=== PATIENT | male | born 1950 | race Caucasian/White ===

== ENCOUNTER 2018-06-06 08:08 | Emergency (ER) | payer OTHER, MEDICARE ==
[2018-06-06 09:51] VITALS: BP 136/80
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
== END 2018-06-06 10:00 | disposition home or self-care (01) ==
LOC: CC.ED 08:08
DX: S80.212A Abrasion, left knee, initial encounter (principal); S80.211A Abrasion, right knee, initial encounter; S00.01XA Abrasion of scalp, initial encounter; M54.2 Cervicalgia; I10 Essential (primary) hypertension; Z79.82 Long term (current) use of aspirin; Z79.899 Other long term (current) drug therapy; V43.53XA Car driver injured in collision with pick-up truck in traffic accident, initial encounter
CPT/HCPCS: 70450; 71046; 72040; 72170; 99284

== ENCOUNTER 2019-03-14 15:52 | Emergency (ER) | payer MEDICARE, OTHER ==
[2019-03-14] MEDS ORDERED: Lidocaine 1% with EPINEPHrine 1:100,000 20 ML MDV ONE (15:58)
[2019-03-14 16:07] VITALS: BP 120/69; PULSE 63
[2019-03-14] MEDS ORDERED: Diphtheria,Pertussis(Acell),Tetanus Vaccine 0.5 ML Syringe IM ONE (16:14)
[2019-03-14] MEDS ORDERED: Lidocaine 1% with EPINEPHrine 1:100,000 20 ML MDV INJECT ONE (16:14)
[2019-03-14] MEDS ORDERED: Bacitracin/Neomycin/Polymyxin B Oint 28.4 GM Tube TOP ONE (16:14)
[2019-03-14] MEDS ORDERED: Bacitracin/Neomycin/Polymyxin B Oint 0.9 GM U/D Packet TOP ONE (16:27)
--- NOTE | 2019-03-14 16:45 | EDM.PDOC ---
ED HPI GENERAL MEDICAL PROBLEM - General Chief Complaint: Laceration Stated Complaint: laceration Time Seen by Provider: 03/14/19 16:08 Source of Information: Reports: Patient History Limitations: Reports: No Limitations - History of Present Illness INITIAL COMMENTS - FREE TEXT/NARRATIVE: Rajinder is a 68 yo male who presents to the ED with concerns of a laceration to the back of his left hand. States he was changing discs on a piece of implement and it slipped. States it has been bleeding quite a bit. Is able to move his finger any difficulty. Unknown tetanus status. Location: Reports: Upper Extremity, Left - Related Data Allergies Allergy/AdvReac Type Severity Reaction Status Date / Time No Known Allergies Allergy Verified 06/06/18 08:24 Home Meds: Home Meds Aspirin [Halfprin] 81 mg PO DAILY 08/10/15 [History] Metoprolol Succinate [Toprol XL] 25 mg PO DAILY 08/10/15 [History] Multivitamin [Daily Multiple Vitamin] 1 tab PO DAILY 08/11/16 [History] [place]-3 Fatty Acids [Fish Oil] 1,200 mg PO DAILY 08/24/16 [History] Cholecalciferol (Vitamin D3) [Vitamin D3] 5,000 units PO DAILY 06/06/18 [History ] Magnesium 250 mg PO DAILY 03/14/19 [History] Past Medical History Cardiovascular History: Reports: Blood Clots/VTE/DVT, Hypertension, Stents Gastrointestinal History: Reports: None Musculoskeletal History: Reports: Arthritis, Fracture - Past Surgical History Cardiovascular Surgical History: Reports: None GI Surgical History: Reports: Colonoscopy Musculoskeletal Surgical History: Reports: None Social & Family History - Family History Family Medical History: Noncontributory - Tobacco Use Smoking Status *Q: Former Smoker Used Tobacco, but Quit: Yes Month/Year Tobacco Last Used: 20yrs - Caffeine Use Caffeine Use: Reports: Coffee - Recreational Drug Use Recreational Drug Use: No - Living Situation & Occupation Living situation: Reports: , with Spouse ED ROS GENERAL - Review of Systems Review Of Systems: ROS reveals no pertinent complaints other than HPI. ED EXAM, SKIN/RASH Exam: See Below Exam Limited By: No Limitations General Appearance: Alert, No Apparent Distress Skin: Wound/Incision (5cm laceration to dorsum of left hand. ) ED SKIN PROCEDURES - Laceration/Wound Repair Left Dorsal Hand Lac/Wound length In cm: 5 Appearance: Subcutaneous, Linear, Clean Distal NVT: Neuro & Vascular Intact, No Tendon Injury Anesthetic Type: Local Local Anesthesia - Lidocaine (Xylocaine): 1% with EPI Local Anesthetic Volume: 5cc Skin Prep: Chlorhexidine (Hibiciens) Exploration/Debridement/Repair: Wound Explored, In a Bloodless Field, Explored to Base, No Foreign Material Found Closed with: Sutures Suture Size: 4-0 # of Sutures: 10 Suture Type: Prolene, Interrupted, Simple Sterile Dressing Applied: Nurse Tetanus Status Addressed: Yes Complications: No Course - Vital Signs Last Recorded V/S: Last Vital Signs Temp 97.7 F 03/14/19 16:04 Pulse 63 03/14/19 16:04 Resp 16 03/14/19 16:04 BP 120/69 03/14/19 16:04 Pulse Ox 96 03/14/19 16:04 - Orders/Labs/Meds Orders: Active Orders 24 hr Category Date Time Status Vaccines to be Administered [RC] PER UNIT ROUTINE Care 03/14/19 16:14 Active Meds: Medications Discontinued Medications Generic Name Dose Route Start Last Admin Trade Name Wilfred PRN Reason Stop Dose Admin Diphtheria/Tetanus/Acell Pertussis 0.5 ml 03/14/19 16:14 03/14/19 16:28 Adacel IM 03/14/19 16:15 0.5 ml .ONCE ONE Administration Lidocaine/Epinephrine Confirm 03/14/19 15:58 03/14/19 16:26 Xylocaine 1% With Epinephrine 1:100,000 Administered 03/14/19 15:59 Not Given Dose 20 ml .ROUTE .STK-MED ONE Lidocaine/Epinephrine 20 ml 03/14/19 16:14 03/14/19 16:25 Xylocaine 1% With Epinephrine 1:100,000 INJECT 03/14/19 16:15 20 ml ONETIME ONE Administration Neomycin/Polymyxin/Bacitracin 1 each 03/14/19 16:27 Triple Antibiotic Oint TOP 03/14/19 16:28 ONETIME ONE Departure - Departure Time of Disposition: 16:43 Disposition: Home, Self-Care 01 Clinical Impression: Laceration of hand Qualifiers: Encounter type: initial encounter Foreign body presence: without foreign body Laterality: left Qualified Code(s): S61.412A - Laceration without foreign body of left hand, initial encounter - Discharge Information Instructions: Laceration Care, Adult, [id number] Additional Instructions: 1) keep wound clean and dry for 48 hours. May change bandage daily 2) Sutures out in 10 days 3) Watch for signs of infection (redness, swelling, warmth, drainage, etc...). 4) Discussed that I did not see any tendon involvement; however, if any difficulty with extension of distal finger advise returning immediately. 5) Tdap given today - Problem List & Annotations (1) Laceration of hand SNOMED Code(s): 979168920 Code(s): S61.419A - LACERATION WITHOUT FOREIGN BODY OF UNSP HAND, INIT ENCNTR Status: Acute Current Visit: Yes Qualifiers: Encounter type: initial encounter Foreign body presence: without foreign body Laterality: left Qualified Code(s): S61.412A - Laceration without foreign body of left hand, initial encounter - My Orders Last 24 Hours: My Active Orders 03/14/19 16:14 Vaccines to be Administered [RC] PER UNIT ROUTINE - Assessment/Plan Last 24 Hours: My Active Orders 03/14/19 16:14 Vaccines to be Administered [RC] PER UNIT ROUTINE Plan: See procedure and additional instructions.
== END 2019-03-14 16:48 | disposition home or self-care (01) ==
LOC: CC.ED 15:52
DX: S61.412A Laceration without foreign body of left hand, initial encounter (principal); Z23 Encounter for immunization; Z87.891 Personal history of nicotine dependence; Z79.82 Long term (current) use of aspirin; Z79.899 Other long term (current) drug therapy; W26.9XXA Contact with unspecified sharp object(s), initial encounter
CPT/HCPCS: 12001; 12002; 90471; 90715; 99282; 99283

== ENCOUNTER 2019-11-28 22:55 | Emergency (ER) | payer MEDICARE, OTHER ==
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
[2019-11-28] MEDS: Aspirin 81 MG Tab.Chew PO ONE (23:19)
[2019-11-28 23:41] LABS: CHLORIDE,CL 105 mEq/L (98-106); SODIUM,NA 139 mEq/L (136-145)
[2019-11-29] MEDS: Nitroglycerin 2% Oint 1 GM UD Packet TOP ONE (00:17)
[2019-11-29] MEDS: Enoxaparin 100 MG/1 ML Syringe SUBCUT STA (00:22)
[2019-11-29 00:38] VITALS: PULSE 70
[2019-11-29 00:50] VITALS: BP 154/86
== END 2019-11-29 00:58 ==
LOC: CC.ED 22:55
DX: I24.9 Acute ischemic heart disease, unspecified (principal); I10 Essential (primary) hypertension; M19.90 Unspecified osteoarthritis, unspecified site; Z86.718 Personal history of other venous thrombosis and embolism; Z79.82 Long term (current) use of aspirin; Z79.899 Other long term (current) drug therapy
CPT/HCPCS: 36415; 71046; 80053; 82150; 82550; 83615; 83690; 84484; 85025; 85610; 93005; 96372; 99284; 99285-25; A9270-GY; J1650

== ENCOUNTER 2020-06-14 14:24 | Inpatient (IN) | payer MEDICARE, OTHER ==
[2020-06-14] MEDS ORDERED: Ondansetron 4 MG Tab.DIS PO ONE (15:05)
[2020-06-14] MEDS ORDERED: Ondansetron 4 MG Tab.DIS PO PRN (16:34)
[2020-06-14] MEDS: Sodium Chloride 0.9% 1,000 ML IV SCH (17:35)
[2020-06-14] MEDS: Ascorbic Acid 500 MG Tab PO SCH (17:36)
[2020-06-14] MEDS ORDERED: Enoxaparin 40 MG/0.4 ML Syringe SUBCUT SCH (20:00)
[2020-06-14] MEDS ORDERED: Cholecalciferol (Vitamin D3) 25 MCG Tab PO ONE (20:00)
[2020-06-14] MEDS: Zinc Sulfate 220 MG Cap PO SCH (20:15)
[2020-06-14] MEDS: Acetaminophen 325 MG Tab PO PRN (20:22)
[2020-06-15] MEDS: Sodium Chloride 0.9% 1,000 ML IV SCH ×2 (00:33→08:28)
[2020-06-15] MEDS: Acetaminophen 325 MG Tab PO PRN ×2 (04:43→11:25)
[2020-06-15 07:24] LABS: CHLORIDE,CL 101 mEq/L (98-106); SODIUM,NA 134 mEq/L (136-145)
[2020-06-15] MEDS: Ibuprofen 200 MG Tab PO PRN (08:28)
[2020-06-15] MEDS: Zinc Sulfate 220 MG Cap PO SCH (08:28)
[2020-06-15] MEDS: Ascorbic Acid 500 MG Tab PO SCH (08:28)
[2020-06-15] MEDS ORDERED: NITROGLYCERIN 0.4 MG SL PRN (09:06)
--- NOTE | 2020-06-15 10:18 | EDM.PDOC ---
ED HPI GENERAL MEDICAL PROBLEM - General Chief Complaint: Respiratory Problem Stated Complaint: ER Time Seen by Provider: 06/14/20 14:30 Source of Information: Reports: Patient History Limitations: Reports: No Limitations - History of Present Illness INITIAL COMMENTS - FREE TEXT/NARRATIVE: Rajinder is a 70 yo male who presents to the clinic with c/o weakness, fatigue, generalized malaise. Had covid test prior to presentation and is positive for covid. He reports he believes he has had chills the last 2 weeks. Reports that on Sunday he began feeling very lousy. Has not been able to get out of bed much. Has not been eating/drinking much. Reports when he eats he feels very nauseated. Does feel like he is mildly short of breath, but relates that this is due to the drainage down his throat. He has no increased work of breathing. Does have cough. VSS on RA. He is afebrile upon presentation. Onset Date: 06/11/20 Duration: Getting Worse Location: Reports: Generalized Quality: Reports: Ache Associated Symptoms: Reports: Cough, cough w sputum, Diaphoresis, Fever/Chills, Headaches, Loss of Appetite, Malaise, Nausea/Vomiting, Shortness of Breath, Weakness. Denies: Confusion, Chest Pain - Related Data Allergies Allergy/AdvReac Type Severity Reaction Status Date / Time No Known Allergies Allergy Verified 06/14/20 15:06 Home Meds: Home Meds Aspirin [Halfprin] 81 mg PO DAILY 08/10/15 [History] Metoprolol Succinate [Toprol XL] 25 mg PO DAILY 08/10/15 [History] Multivitamin [Daily Multiple Vitamin] 1 tab PO DAILY 08/11/16 [History] Leola-3S/DHA/Epa/Fish Oil [Leola-3 Fish Oil 1,200 mg Sfgl] 3,600 mg PO DAILY 11/28/19 [History] Calcium Carb/Magnesium Oxid/D3 [Calcium Magnesium + D] 1 each PO DAILY 12/23/19 [History] Clopidogrel Bisulfate [Clopidogrel] 75 mg PO DAILY 12/23/19 [History] Nitroglycerin 0.4 mg SL ASDIRECTED PRN 12/23/19 [History] Rosuvastatin Calcium 20 mg PO DAILY 12/23/19 [History] lisinopriL [Lisinopril] 5 mg PO DAILY 12/23/19 [History] Past Medical History Cardiovascular History: Reports: Blood Clots/VTE/DVT, High Cholesterol, Hypertension, Stents Gastrointestinal History: Reports: None Musculoskeletal History: Reports: Arthritis, Fracture - Past Surgical History Cardiovascular Surgical History: Reports: None Other Cardiovascular Surgeries/Procedures: had previous stents placed; had chest pressure, came to [facility], taken by ambulance to [place]. Since the procedure he has seen Dr. Mims as well as cardiology--said they listened to his lungs recently; [place] 11-29-19 and PTCA stent 11-30-19; wrist angiogram insertion site healing well. GI Surgical History: Reports: Colonoscopy Musculoskeletal Surgical History: Reports: None Other Musculoskeletal Surgeries/Procedures:: knees bother at times Social & Family History - Family History Family Medical History: Noncontributory - Tobacco Use Tobacco Use Status *Q: Former Tobacco User Used Tobacco, but Quit: No Month/Year Tobacco Last Used: 1989 - Caffeine Use Caffeine Use: Reports: Coffee - Recreational Drug Use Recreational Drug Use: No - Living Situation & Occupation Living situation: Reports: , with Spouse ED ROS GENERAL - Review of Systems Review Of Systems: Comprehensive ROS is negative, except as noted in HPI. ED EXAM, GENERAL - Physical Exam Exam: See Below Exam Limited By: No Limitations General Appearance: Alert, WD/WN, No Apparent Distress, Other (acutely ill) Eye Exam: Bilateral Eye: EOMI, PERRL Ears: Normal External Exam, Normal Canal, Hearing Grossly Normal, Normal TMs Nose: Nasal Swelling, Nasal Drainage Throat/Mouth: Normal Inspection, Normal Lips, Normal Teeth, Normal Gums, Normal Oropharynx, Normal Voice, No Airway Compromise Head: Atraumatic, Normocephalic Neck: Normal Inspection, Supple, Non-Tender, Full Range of Motion Respiratory/Chest: No Respiratory Distress, Lungs Clear, Normal Breath Sounds, No Accessory Muscle Use, Chest Non-Tender Cardiovascular: Normal Peripheral Pulses, Regular Rate, Rhythm, No Edema, No Gallop, No JVD, No Murmur, No Rub GI/Abdominal: Normal Bowel Sounds, Soft, Non-Tender, No Organomegaly, No Distention, No Abnormal Bruit, No Mass Back Exam: Normal Inspection, Full Range of Motion, NT Extremities: Normal Inspection, Normal Range of Motion, Non-Tender, Normal Capillary Refill, No Pedal Edema Neurological: Alert, Oriented, CN II-XII Intact, Normal Cognition, Normal Gait, Normal Reflexes, No Motor/Sensory Deficits Psychiatric: Normal Affect, Normal Mood Skin Exam: Warm, Intact, Normal Color, No Rash, Other (clammy) Lymphatic: No Adenopathy Course - Vital Signs Last Recorded V/S: Last Vital Signs Temp 100.1 F 06/15/20 08:28 Pulse 73 06/15/20 08:00 Resp 18 06/15/20 08:00 BP 124/70 06/15/20 08:00 Pulse Ox 95 06/15/20 08:00 - Orders/Labs/Meds Orders: Active Orders 24 hr Category Date Time Status Chest 2V [CR] Stat Exams 06/14/20 14:30 Taken Medication Orders Acetaminophen (Tylenol) 650 mg PO Q4H PRN PRN Reason: Pain (Mild 1-3)/fever Last Admin: 06/15/20 04:43 Dose: 650 mg Documented by: Admin: 06/14/20 20:22 Dose: 650 mg Documented by: ERIKA Ascorbic Acid (Vitamin C) 500 mg PO DAILY [facility] Last Admin: 06/15/20 08:28 Dose: 500 mg Documented by: Admin: 06/14/20 17:36 Dose: 500 mg Documented by: BUDDY Aspirin (Halfprin) 81 mg PO DAILY [facility] Clopidogrel Bisulfate (Plavix) 75 mg PO DAILY [facility] Enoxaparin Sodium (Lovenox) 40 mg SUBCUT BID [facility] Sodium Chloride (Normal Saline) 1,000 mls @ 125 mls/hr IV ASDIRECTED [facility] Last Admin: 06/15/20 08:28 Dose: 125 mls/hr Documented by: Infusion: 06/15/20 08:28 Dose: 125 mls/hr Documented by: Admin: 06/15/20 00:33 Dose: 125 mls/hr Documented by: Infusion: 06/15/20 00:33 Dose: 125 mls/hr Documented by: Admin: 06/14/20 17:35 Dose: 125 mls/hr Documented by: BUDDY Ibuprofen (Motrin) 600 mg PO Q6H PRN PRN Reason: Pain (mild 1-3) Last Admin: 06/15/20 08:28 Dose: 600 mg Documented by: YANET Lisinopril (Prinivil) 5 mg PO DAILY [facility] Metoprolol Succinate (Toprol Xl) 25 mg PO DAILY [facility] Multivitamins/Minerals/Vitamin C (Tab-A-Aure) 1 tab PO DAILY [facility] Nitroglycerin (Nitrostat) 0.4 mg SL ASDIRECTED PRN PRN Reason: Chest Pain Non-Formulary Medication (Calcium Carb/Magnesium Oxid/D3 [Calcium Magnesium + D]) 1 each PO DAILY [facility] Non-Formulary Medication (Rosuvastatin Calcium [Rosuvastatin Calcium]) 20 mg PO DAILY [facility] Ondansetron HCl (Zofran Odt) 4 mg PO Q6H PRN PRN Reason: nausea, able to take PO Temazepam (Restoril) 15 mg PO BEDTIME PRN PRN Reason: Sleep Zinc Sulfate (Zincate) 220 mg PO DAILY [facility] Last Admin: 06/15/20 08:28 Dose: 220 mg Documented by: Admin: 06/14/20 20:15 Dose: 220 mg Documented by: ERIKA Labs: Laboratory Tests 06/14/20 06/14/20 06/14/20 Range/Units 14:29 14:29 14:29 WBC 4.3 L (5.0-10.0) 10^3/uL RBC 5.11 (4.50-6.00) 10^6/uL Hgb 16.3 (14.0-18.0) g/dL Hct 47.3 (40.0-54.0) % MCV 92.6 (82.0-94.0) fL MCH 31.9 (27.0-32.0) pg MCHC 34.5 (33.0-38.0) g/dL RDW Coeff of [place] 13.1 (11.0-15.0) % Plt Count 165 (150-400) 10^3/uL Neut % (Auto) 72.5 (35-85) % Lymph % (Auto) 17.4 (10-55) % Spencer % (Auto) 9.9 (0-16) % Eos % (Auto) 0 (0-5) % Baso % (Auto) 0.2 (0-3) % Neut # (Auto) 3.09 (1.80-7.00) 10^3/uL Lymph # (Auto) 0.74 L (1.00-4.80) 10^3/uL Spencer # (Auto) 0.42 (0.00-0.80) 10^3/uL Eos # (Auto) 0.00 (0.00-0.45) 10^3/uL Baso # (Auto) 0.01 10^3/uL D-Dimer, Quantitative 0.67 H (0.00-0.50) Sodium 132 L (136-145) mEq/L Potassium 4.8 (3.5-5.0) mEq/L Chloride 95 L (98-106) mEq/L Carbon Dioxide 25 (21-32) mmol/L BUN 25 H (7-18) mg/dL Creatinine 1.2 (0.7-1.3) mg/dL Est Cr Clr Drug Dosing 58.30 mL/min Estimated GFR (MDRD) 60 (>=60) mL/min Glucose 109 H (75-99) mg/dL Lactic Acid (0.4-2.0) mmol/L Calcium 8.5 (8.4-10.1) mg/dL Total Bilirubin 0.6 (0.0-1.0) mg/dL AST 62 H (15-37) U/L ALT 78 (12-78) U/L Alkaline Phosphatase 85 (46-116) U/L Lactate Dehydrogenase 317 H (100-190) U/L Creatine Kinase 342 H (35-232) U/L C-Reactive Protein 3.4 H (0.2-0.8) mg/dL Total Protein 7.6 (6.4-8.2) g/dL Albumin 3.2 L (3.4-5.0) g/dL 06/14/20 Range/Units 14:31 WBC (5.0-10.0) 10^3/uL RBC (4.50-6.00) 10^6/uL Hgb (14.0-18.0) g/dL Hct (40.0-54.0) % MCV (82.0-94.0) fL MCH (27.0-32.0) pg MCHC (33.0-38.0) g/dL RDW Coeff of [place] (11.0-15.0) % Plt Count (150-400) 10^3/uL Neut % (Auto) (35-85) % Lymph % (Auto) (10-55) % Spencer % (Auto) (0-16) % Eos % (Auto) (0-5) % Baso % (Auto) (0-3) % Neut # (Auto) (1.80-7.00) 10^3/uL Lymph # (Auto) (1.00-4.80) 10^3/uL Spencer # (Auto) (0.00-0.80) 10^3/uL Eos # (Auto) (0.00-0.45) 10^3/uL Baso # (Auto) 10^3/uL D-Dimer, Quantitative (0.00-0.50) Sodium (136-145) mEq/L Potassium (3.5-5.0) mEq/L Chloride (98-106) mEq/L Carbon Dioxide (21-32) mmol/L BUN (7-18) mg/dL Creatinine (0.7-1.3) mg/dL Est Cr Clr Drug Dosing mL/min Estimated GFR (MDRD) (>=60) mL/min Glucose (75-99) mg/dL Lactic Acid 1.7 (0.4-2.0) mmol/L Calcium (8.4-10.1) mg/dL Total Bilirubin (0.0-1.0) mg/dL AST (15-37) U/L ALT (12-78) U/L Alkaline Phosphatase (46-116) U/L Lactate Dehydrogenase (100-190) U/L Creatine Kinase (35-232) U/L C-Reactive Protein (0.2-0.8) mg/dL Total Protein (6.4-8.2) g/dL Albumin (3.4-5.0) g/dL Meds: Medications Generic Name Dose Route Start Last Admin Trade Name Freq PRN Reason Stop Dose Admin Acetaminophen 650 mg 06/14/20 16:34 06/15/20 04:43 Tylenol PO 650 mg Q4H PRN Administration Pain (Mild 1-3)/fever Ascorbic Acid 500 mg 06/14/20 17:30 06/15/20 08:28 Vitamin C PO 500 mg DAILY JUAN RAMON Administration Aspirin 81 mg 06/15/20 09:15 Halfprin PO DAILY [facility] Clopidogrel Bisulfate 75 mg 06/15/20 09:15 Plavix PO DAILY [facility] Enoxaparin Sodium 40 mg 06/15/20 09:30 Lovenox SUBCUT BID [facility] Sodium Chloride 1,000 mls @ 125 mls/hr 06/14/20 16:34 06/15/20 08:28 Normal Saline IV 125 mls/hr ASDIRECTED JUAN RAMON Administration Ibuprofen 600 mg 06/14/20 16:34 06/15/20 08:28 Motrin PO 600 mg Q6H PRN Administration Pain (mild 1-3) Lisinopril 5 mg 06/15/20 09:15 Prinivil PO DAILY [facility] Metoprolol Succinate 25 mg 06/15/20 09:15 Toprol Xl PO DAILY [facility] Multivitamins/Minerals/Vitamin C 1 tab 06/15/20 09:15 Tab-A-Aure PO DAILY [facility] Nitroglycerin 0.4 mg 06/15/20 09:06 Nitrostat SL ASDIRECTED PRN Chest Pain Non-Formulary Medication 1 each 06/15/20 09:15 Calcium Carb/Magnesium Oxid/D3 [Calcium Magnesium + D] PO DAILY [facility] Non-Formulary Medication 20 mg 06/15/20 09:15 Rosuvastatin Calcium [Rosuvastatin Calcium] PO DAILY [facility] Ondansetron HCl 4 mg 06/14/20 16:34 Zofran Odt PO Q6H PRN nausea, able to take PO Temazepam 15 mg 06/14/20 16:34 Restoril PO BEDTIME PRN Sleep Zinc Sulfate 220 mg 06/14/20 20:00 06/15/20 08:28 Zincate PO 220 mg DAILY [facility] Administration Discontinued Medications Generic Name Dose Route Start Last Admin Trade Name Freq PRN Reason Stop Dose Admin Cholecalciferol 50 mcg 06/14/20 20:00 06/14/20 20:15 Vitamin D3 PO 06/14/20 20:01 50 mcg ONETIME ONE Administration Enoxaparin Sodium 40 mg 06/14/20 20:00 06/14/20 20:15 Lovenox SUBCUT 40 mg Q24H [facility] Administration Ondansetron HCl 4 mg 06/14/20 15:05 06/14/20 15:10 Zofran Odt PO 06/14/20 15:06 4 mg ONETIME ONE Administration Departure - Departure Time of Disposition: 16:29 Disposition: Refer to Observation Condition: Fair Clinical Impression: COVID-19, Hyponatremia, Generalized weakness - Discharge Information *PRESCRIPTION DRUG MONITORING PROGRAM REVIEWED*: Not Applicable *COPY OF PRESCRIPTION DRUG MONITORING REPORT IN PATIENT JOANNA: Not Applicable Sepsis Event Note (ED) - Evaluation Sepsis Screening Result: No Definite Risk - Problem List & Annotations (1) COVID-19 SNOMED Code(s): 284164779 Code(s): U07.1 - COVID-19 Status: Acute Current Visit: Yes (2) Generalized weakness SNOMED Code(s): 15620829 Code(s): R53.1 - WEAKNESS Status: Acute Current Visit: Yes (3) Hyponatremia SNOMED Code(s): 22870901 Code(s): E87.1 - HYPO-OSMOLALITY AND HYPONATREMIA Status: Acute Current Visit: Yes - My Orders Last 24 Hours: My Active Orders 06/14/20 14:30 Chest 2V [CR] Stat - Assessment/Plan Admission H&P: Please use this note as an admission H&P Last 24 Hours: My Active Orders 06/14/20 14:30 Chest 2V [CR] Stat Assessment:: Covid-19 Generalized weakness Hyponatremia Plan: Patient presents with Covid-19. Has not been eating/drinking much. Has been very fatigued and weak. VSS on RA. O2 saturations 96% on RA. Labs significant for Na 132, D-Dimer 0.67, WBC 4.3, BUN 25, Lactic acid 1.7, LDH 317, CK 342, and CRP 3.4. Will admit to observation. Initiate Normal Saline. Patient does not currently qualify for remdesivir or dexamethasone as he is not hypoxic. Will recheck labs in am. If stable, anticipate discharge home. Patient verbalized understanding and was agreeable with plan.
[2020-06-15] MEDS: Enoxaparin 40 MG/0.4 ML Syringe SUBCUT SCH ×2 (10:50→20:59)
[2020-06-15] MEDS: Dexamethasone 4 MG Tab PO SCH (12:10)
--- NOTE | 2020-06-15 14:05 | PCM.PN ---
- General Info Date of Service: 06/15/20 Admission Dx/Problem (Free Text): Covid 19 infection Subjective Update: Rajinder is a 70 yo male who was admitted to the hospital with weakness with newly diagnosed COVID 19 infection. He states he has been having a persistent cough and this morning started to develop some intermittent left sided chest pain. States the pain is present with coughing and taking in a deep breath. Does notice some discomfort with palpation to the chest wall as well. States he didn't get a lot of sleep d/t the coughing. Overall, does admit to feeling better today. Was given IV fluids yesterday. Functional Status: Reports: Pain Controlled, Tolerating Diet, Incentive Spirometry - Review of Systems General: Reports: Fever (low grade) HEENT: Reports: Headaches, Sinus Congestion Pulmonary: Reports: Pleuritic Chest Pain, Cough. Denies: Shortness of Breath Cardiovascular: Reports: No Symptoms Gastrointestinal: Reports: No Symptoms Genitourinary: Reports: No Symptoms Neurological: Reports: No Symptoms - Patient Data Vitals - Most Recent: Last Vital Signs Temp 99.9 F 06/15/20 11:32 Pulse 69 06/15/20 11:32 Resp 18 06/15/20 11:32 BP 104/67 06/15/20 11:32 Pulse Ox 95 06/15/20 11:32 Weight - Most Recent: 190 lb I&O - Last 24 Hours: Intake & Output 06/14/20 06/15/20 06/15/20 22:59 06:59 14:59 Intake Total 871 990 Balance 871 990 Lab Results Last 24 Hours: Laboratory Results - last 24 hr 06/14/20 06/14/20 06/14/20 Range/Units 14:29 14:29 14:29 WBC 4.3 L (5.0-10.0) 10^3/uL RBC 5.11 (4.50-6.00) 10^6/uL Hgb 16.3 (14.0-18.0) g/dL Hct 47.3 (40.0-54.0) % MCV 92.6 (82.0-94.0) fL MCH 31.9 (27.0-32.0) pg MCHC 34.5 (33.0-38.0) g/dL RDW Coeff of [place] 13.1 (11.0-15.0) % Plt Count 165 (150-400) 10^3/uL Neut % (Auto) 72.5 (35-85) % Lymph % (Auto) 17.4 (10-55) % [place] % (Auto) 9.9 (0-16) % Eos % (Auto) 0 (0-5) % Baso % (Auto) 0.2 (0-3) % Neut # (Auto) 3.09 (1.80-7.00) 10^3/uL Lymph # (Auto) 0.74 L (1.00-4.80) 10^3/uL [place] # (Auto) 0.42 (0.00-0.80) 10^3/uL Eos # (Auto) 0.00 (0.00-0.45) 10^3/uL Baso # (Auto) 0.01 10^3/uL D-Dimer, Quantitative 0.67 H (0.00-0.50) Sodium 132 L (136-145) mEq/L Potassium 4.8 (3.5-5.0) mEq/L Chloride 95 L (98-106) mEq/L Carbon Dioxide 25 (21-32) mmol/L BUN 25 H (7-18) mg/dL Creatinine 1.2 (0.7-1.3) mg/dL Est Cr Clr Drug Dosing 58.30 mL/min Estimated GFR (MDRD) 60 (>=60) mL/min Glucose 109 H (75-99) mg/dL Lactic Acid (0.4-2.0) mmol/L Calcium 8.5 (8.4-10.1) mg/dL Total Bilirubin 0.6 (0.0-1.0) mg/dL AST 62 H (15-37) U/L ALT 78 (12-78) U/L Alkaline Phosphatase 85 (46-116) U/L Lactate Dehydrogenase 317 H (100-190) U/L Creatine Kinase 342 H (35-232) U/L Troponin I (0.00-0.06) ng/mL C-Reactive Protein 3.4 H (0.2-0.8) mg/dL Total Protein 7.6 (6.4-8.2) g/dL Albumin 3.2 L (3.4-5.0) g/dL 06/14/20 06/15/2006/15/20 Range/Units 14:31 06:55 06:55 WBC 5.0 (5.0-10.0) 10^3/uL RBC 4.63 (4.50-6.00) 10^6/uL Hgb 14.8 (14.0-18.0) g/dL Hct 43.4 (40.0-54.0) % MCV 93.7 (82.0-94.0) fL MCH 32.0 (27.0-32.0) pg MCHC 34.1 (33.0-38.0) g/dL RDW Coeff of [place] 13.0 (11.0-15.0) % Plt Count 148 L (150-400) 10^3/uL Neut % (Auto) 73.8 (35-85) % Lymph % (Auto) 17.9 (10-55) % [place] % (Auto) 8.1 (0-16) % Eos % (Auto) 0 (0-5) % Baso % (Auto) 0.2 (0-3) % Neut # (Auto) 3.66 (1.80-7.00) 10^3/uL Lymph # (Auto) 0.89 L (1.00-4.80) 10^3/uL [place] # (Auto) 0.40 (0.00-0.80) 10^3/uL Eos # (Auto) 0.00 (0.00-0.45) 10^3/uL Baso # (Auto) 0.01 10^3/uL D-Dimer, Quantitative (0.00-0.50) Sodium 134 L (136-145) mEq/L Potassium 4.9 (3.5-5.0) mEq/L Chloride 101 (98-106) mEq/L Carbon Dioxide 27 (21-32) mmol/L BUN 21 H (7-18) mg/dL Creatinine 1.1 (0.7-1.3) mg/dL Est Cr Clr Drug Dosing 63.60 mL/min Estimated GFR (MDRD) > 60 (>=60) mL/min Glucose 100 H (75-99) mg/dL Lactic Acid 1.7 (0.4-2.0) mmol/L Calcium 8.0 L (8.4-10.1) mg/dL Total Bilirubin (0.0-1.0) mg/dL AST (15-37) U/L ALT (12-78) U/L Alkaline Phosphatase (46-116) U/L Lactate Dehydrogenase 302 H (100-190) U/L Creatine Kinase 277 H (35-232) U/L Troponin I 0.144 H (0.00-0.06) ng/mL C-Reactive Protein 3.7 H (0.2-0.8) mg/dL Total Protein (6.4-8.2) g/dL Albumin (3.4-5.0) g/dL 06/15/20 Range/Units 12:20 WBC (5.0-10.0) 10^3/uL RBC (4.50-6.00) 10^6/uL Hgb (14.0-18.0) g/dL Hct (40.0-54.0) % MCV (82.0-94.0) fL MCH (27.0-32.0) pg MCHC (33.0-38.0) g/dL RDW Coeff of [place] (11.0-15.0) % Plt Count (150-400) 10^3/uL Neut % (Auto) (35-85) % Lymph % (Auto) (10-55) % [place] % (Auto) (0-16) % Eos % (Auto) (0-5) % Baso % (Auto) (0-3) % Neut # (Auto) (1.80-7.00) 10^3/uL Lymph # (Auto) (1.00-4.80) 10^3/uL [place] # (Auto) (0.00-0.80) 10^3/uL Eos # (Auto) (0.00-0.45) 10^3/uL Baso # (Auto) 10^3/uL D-Dimer, Quantitative (0.00-0.50) Sodium (136-145) mEq/L Potassium (3.5-5.0) mEq/L Chloride (98-106) mEq/L Carbon Dioxide (21-32) mmol/L BUN (7-18) mg/dL Creatinine (0.7-1.3) mg/dL Est Cr Clr Drug Dosing mL/min Estimated GFR (MDRD) (>=60) mL/min Glucose (75-99) mg/dL Lactic Acid (0.4-2.0) mmol/L Calcium (8.4-10.1) mg/dL Total Bilirubin (0.0-1.0) mg/dL AST (15-37) U/L ALT (12-78) U/L Alkaline Phosphatase (46-116) U/L Lactate Dehydrogenase (100-190) U/L Creatine Kinase (35-232) U/L Troponin I 0.144 H (0.00-0.06) ng/mL C-Reactive Protein (0.2-0.8) mg/dL Total Protein (6.4-8.2) g/dL Albumin (3.4-5.0) g/dL Med Orders - Current: Current Medications Acetaminophen (Tylenol) 650 mg PO Q4H PRN PRN Reason: Pain (Mild 1-3)/fever Last Admin: 06/15/20 11:25 Dose: 650 mg Documented by: Ascorbic Acid (Vitamin C) 500 mg PO DAILY [facility] Last Admin: 06/15/20 08:28 Dose: 500 mg Documented by: Aspirin (Halfprin) 81 mg PO DAILY [facility] Calcium Carbonate (Calcium Carbonate/Vitamin D 1250 Mg-200 Unit) 1 tab PO DAILY [facility] Clopidogrel Bisulfate (Plavix) 75 mg PO DAILY [facility] Dexamethasone (Dexamethasone) 6 mg PO DAILY [facility] Last Admin: 06/15/20 12:10 Dose: 6 mg Documented by: Enoxaparin Sodium (Lovenox) 40 mg SUBCUT BID [facility] Last Admin: 06/15/20 10:50 Dose: 40 mg Documented by: Sodium Chloride (Normal Saline) 1,000 mls @ 125 mls/hr IV ASDIRECTED [facility] Last Admin: 06/15/20 08:28 Dose: 125 mls/hr Documented by: Ibuprofen (Motrin) 600 mg PO Q6H PRN PRN Reason: Pain (mild 1-3) Last Admin: 06/15/20 08:28 Dose: 600 mg Documented by: Lisinopril (Prinivil) 5 mg PO DAILY [facility] Metoprolol Succinate (Toprol Xl) 25 mg PO DAILY [facility] Multivitamins/Minerals/Vitamin C (Tab-A-Aure) 1 tab PO DAILY [facility] Nitroglycerin (Nitrostat) 0.4 mg SL ASDIRECTED PRN PRN Reason: Chest Pain Rosuvastatin Calcium [Rosuvastatin Calcium] 20 Mg Ptom 0 mg PO BEDTIME [facility] Ondansetron HCl (Zofran Odt) 4 mg PO Q6H PRN PRN Reason: nausea, able to take PO Temazepam (Restoril) 15 mg PO BEDTIME PRN PRN Reason: Sleep Zinc Sulfate (Zincate) 220 mg PO DAILY [facility] Last Admin: 06/15/20 08:28 Dose: 220 mg Documented by: Discontinued Medications Cholecalciferol (Vitamin D3) 50 mcg PO ONETIME ONE Stop: 06/14/20 20:01 Last Admin: 06/14/20 20:15 Dose: 50 mcg Documented by: Enoxaparin Sodium (Lovenox) 40 mg SUBCUT Q24H [facility] Last Admin: 06/14/20 20:15 Dose: 40 mg Documented by: Ondansetron HCl (Zofran Odt) 4 mg PO ONETIME ONE Stop: 06/14/20 15:06 Last Admin: 06/14/20 15:10 Dose: 4 mg Documented by: - Exam Quality Assessment: DVT Prophylaxis General: Alert, Oriented Neck: Supple Lungs: Normal Respiratory Effort, Crackles. No: Decreased Breath Sounds, Wheezing Cardiovascular: Regular Rate, Regular Rhythm, No Murmurs GI/Abdominal Exam: Normal Bowel Sounds, Soft Extremities: Normal Inspection, No Pedal Edema Skin: Warm, Dry, Intact Neurological: No New Focal Deficit Psy/Mental Status: Alert, Normal Affect, Normal Mood Sepsis Event Note - Evaluation Sepsis Screening Result: No Definite Risk - Focused Exam Vital Signs: Vital Signs Temp Temp Pulse Resp BP Pulse Ox 06/15/20 11:32 99.9 F 69 18 104/67 95 06/15/20 09:28 99 F 06/15/20 08:28 100.1 F 06/15/20 08:00 100.1 F 73 18 124/70 95 06/15/20 06:00 99.5 F 06/15/20 04:45 101 F H 75 16 115/76 97 - Problem List & Annotations (1) COVID-19 SNOMED Code(s): 100279472 Code(s): U07.1 - COVID-19 Status: Acute Current Visit: Yes (2) Generalized weakness SNOMED Code(s): 84637355 Code(s): R53.1 - WEAKNESS Status: Acute Current Visit: Yes (3) Hyponatremia SNOMED Code(s): 58755995 Code(s): E87.1 - HYPO-OSMOLALITY AND HYPONATREMIA Status: Acute Current Visit: Yes - Problem List Review Problem List Initiated/Reviewed/Updated: Yes - My Orders Last 24 Hours: My Active Orders 06/15/20 12:00 dexAMETHasone 6 mg PO DAILY - Plan Plan:: Reviewed laboratory work this am. Troponin indeterminate. Sodium has improved to 134. Will look at d/c IV fluids this afternoon. Repeat labs in am. Troponin this afternoon remained indeterminate, no elevation noted. Appears pain is consistent with pleuritic chest pain and will start dexamethasone 6mg orally daily. EKG showed normal sinus rhythm today. Lovenox switched to 40mg BID as patient is at risk for hypercoagulable state. Discussed cough medicine with patient and will order to help get rest tonight. Will reevaluate in am and if continues to show improvement and no concerning findings on labs will look at discharge. Pt in agreement.
[2020-06-15] MEDS: Metoprolol Succinate 25 MG Tab.ER **PTOM PO SCH (16:26)
[2020-06-15] MEDS: Clopidogrel 75 MG Tab **PTOM PO SCH (16:27)
[2020-06-15] MEDS: Aspirin 81 MG Tab.EC PO SCH (16:33)
[2020-06-15] MEDS ORDERED: ROSUVASTATIN CALCIUM 20 MG PO SCH (20:00)
[2020-06-15] MEDS: Codeine/Promethazine 10-6.25 MG/5 ML Syrup 5 ML UD Cup PO PRN (21:23)
[2020-06-16] MEDS: Temazepam 15 MG Cap PO PRN (00:31)
[2020-06-16] MEDS: Acetaminophen 325 MG Tab PO PRN (04:55)
[2020-06-16 08:01] LABS: CHLORIDE,CL 101 mEq/L (98-106); SODIUM,NA 135 mEq/L (136-145)
[2020-06-16] MEDS: Calcium Carbonate/Vitamin D3 1250 MG-200 Unit Tab PO SCH (08:39)
[2020-06-16] MEDS: Dexamethasone 4 MG Tab PO SCH (08:40)
[2020-06-16] MEDS: Multivitamin Tab PO SCH (08:40)
[2020-06-16] MEDS: Enoxaparin 40 MG/0.4 ML Syringe SUBCUT SCH ×2 (08:40→19:37)
[2020-06-16] MEDS: Aspirin 81 MG Tab.EC PO SCH (08:40)
[2020-06-16] MEDS: Clopidogrel 75 MG Tab **PTOM PO SCH (08:41)
[2020-06-16] MEDS: Metoprolol Succinate 25 MG Tab.ER **PTOM PO SCH (08:41)
[2020-06-16] MEDS: Ascorbic Acid 500 MG Tab PO SCH (08:42)
[2020-06-16] MEDS: Zinc Sulfate 220 MG Cap PO SCH (08:42)
[2020-06-16] MEDS ORDERED: Nitroglycerin 0.4 MG Tab.SL SL PRN (15:37)
[2020-06-16] MEDS: Simvastatin 40 MG Tab PO SCH (19:37)
[2020-06-16] MEDS: Codeine/Promethazine 10-6.25 MG/5 ML Syrup 5 ML UD Cup PO PRN (19:37)
[2020-06-17] MEDS: Ibuprofen 200 MG Tab PO PRN (05:00)
[2020-06-17 07:34] LABS: CHLORIDE,CL 101 mEq/L (98-106); SODIUM,NA 134 mEq/L (136-145)
--- NOTE | 2020-06-17 07:54 | PCM.PN ---
- General Info Date of Service: 06/16/20 Admission Dx/Problem (Free Text): Covid 19 infection Subjective Update: Rajinder is a 70 yo male who was admitted to the hospital with weakness with newly diagnosed COVID 19 infection. He states he has been having a persistent cough and this morning started to develop some intermittent left sided chest pain. States the pain is present with coughing and taking in a deep breath. Does notice some discomfort with palpation to the chest wall as well. States he didn't get a lot of sleep d/t the coughing. Overall, does admit to feeling better today. Was given IV fluids yesterday. Rajinder continues to have some chest discomfort with coughing only but has i mproved. States today he doesn't have much of an appetite. Denies any increase in shortness of breath. States he feels he is gradually showing improvement. No new onset of symptoms. Has been ambulating to the bathroom without difficulty. Continues to have intermittent low grade fevers. Functional Status: Reports: Pain Controlled - Review of Systems General: Reports: Weakness, Fatigue HEENT: Reports: No Symptoms Pulmonary: Reports: Pleuritic Chest Pain, Cough. Denies: Shortness of Breath Cardiovascular: Reports: No Symptoms Gastrointestinal: Reports: No Symptoms Genitourinary: Reports: No Symptoms Musculoskeletal: Reports: Other (generalized myalgias) Neurological: Reports: No Symptoms - Patient Data Vitals - Most Recent: Last Vital Signs Temp 98.7 F 06/17/20 06:50 Pulse 73 06/17/20 04:00 Resp 18 06/17/20 04:00 BP 147/62 H 06/17/20 04:00 Pulse Ox 91 L 06/17/20 04:00 Weight - Most Recent: 190 lb Lab Results Last 24 Hours: Laboratory Results - last 24 hr 06/16/20 06/16/20 06/17/20 Range/Units 05:11 05:11 06:50 WBC 8.5 8.6 (5.0-10.0) 10^3/uL RBC 4.47 L 4.49 L (4.50-6.00) 10^6/uL Hgb 14.2 14.4 (14.0-18.0) g/dL Hct 41.8 41.7 (40.0-54.0) % MCV 93.5 92.9 (82.0-94.0) fL MCH 31.8 32.1 H (27.0-32.0) pg MCHC 34.0 34.5 (33.0-38.0) g/dL RDW Coeff of [place] 12.8 12.9 (11.0-15.0) % Plt Count 174 203 (150-400) 10^3/uL Neut % (Auto) 85.4 H (35-85) % Lymph % (Auto) 10.1 (10-55) % [place] % (Auto) 4.4 (0-16) % Eos % (Auto) 0 (0-5) % Baso % (Auto) 0.1 (0-3) % Neut # (Auto) 7.36 H (1.80-7.00) 10^3/uL Lymph # (Auto) 0.87 L (1.00-4.80) 10^3/uL [place] # (Auto) 0.38 (0.00-0.80) 10^3/uL Eos # (Auto) 0.00 (0.00-0.45) 10^3/uL Baso # (Auto) 0.01 10^3/uL Add Manual Diff Yes Neutrophils % (Manual) 85 (35-85) % Band Neutrophils % 2 (0-5) % Lymphocytes % (Manual) 7 L (21-55) % Monocytes % (Manual) 5 (2-12) % Eosinophils % (Manual) 1 (0-5) % Sodium 135 L (136-145) mEq/L Potassium 4.2 (3.5-5.0) mEq/L Chloride 101 (98-106) mEq/L Carbon Dioxide 23 (21-32) mmol/L BUN 18 (7-18) mg/dL Creatinine 1.0 (0.7-1.3) mg/dL Est Cr Clr Drug Dosing 69.96 mL/min Estimated GFR (MDRD) > 60 (>=60) mL/min Glucose 108 H (75-99) mg/dL Calcium 8.1 L (8.4-10.1) mg/dL Total Bilirubin 0.4 (0.0-1.0) mg/dL AST 53 H (15-37) U/L ALT 73 (12-78) U/L Alkaline Phosphatase 67 (46-116) U/L C-Reactive Protein 4.6 H (0.2-0.8) mg/dL Total Protein 6.1 L (6.4-8.2) g/dL Albumin 2.5 L (3.4-5.0) g/dL 06/17/20 Range/Units 06:50 WBC (5.0-10.0) 10^3/uL RBC (4.50-6.00) 10^6/uL Hgb (14.0-18.0) g/dL Hct (40.0-54.0) % MCV (82.0-94.0) fL MCH (27.0-32.0) pg MCHC (33.0-38.0) g/dL RDW Coeff of [place] (11.0-15.0) % Plt Count (150-400) 10^3/uL Neut % (Auto) (35-85) % Lymph % (Auto) (10-55) % [place] % (Auto) (0-16) % Eos % (Auto) (0-5) % Baso % (Auto) (0-3) % Neut # (Auto) (1.80-7.00) 10^3/uL Lymph # (Auto) (1.00-4.80) 10^3/uL [place] # (Auto) (0.00-0.80) 10^3/uL Eos # (Auto) (0.00-0.45) 10^3/uL Baso # (Auto) 10^3/uL Add Manual Diff Neutrophils % (Manual) (35-85) % Band Neutrophils % (0-5) % Lymphocytes % (Manual) (21-55) % Monocytes % (Manual) (2-12) % Eosinophils % (Manual) (0-5) % Sodium 134 L (136-145) mEq/L Potassium 4.1 (3.5-5.0) mEq/L Chloride 101 (98-106) mEq/L Carbon Dioxide 25 (21-32) mmol/L BUN 16 (7-18) mg/dL Creatinine 0.9 (0.7-1.3) mg/dL Est Cr Clr Drug Dosing 77.73 mL/min Estimated GFR (MDRD) > 60 (>=60) mL/min Glucose 106 H (75-99) mg/dL Calcium 8.1 L (8.4-10.1) mg/dL Total Bilirubin 0.5 (0.0-1.0) mg/dL AST 45 H (15-37) U/L ALT 66 (12-78) U/L Alkaline Phosphatase 65 (46-116) U/L C-Reactive Protein 4.7 H (0.2-0.8) mg/dL Total Protein 6.3 L (6.4-8.2) g/dL Albumin 2.5 L (3.4-5.0) g/dL Med Orders - Current: Current Medications Acetaminophen (Tylenol) 650 mg PO Q4H PRN PRN Reason: Pain (Mild 1-3)/fever Last Admin: 06/16/20 04:55 Dose: 650 mg Documented by: Ascorbic Acid (Vitamin C) 500 mg PO DAILY [facility] Last Admin: 06/16/20 08:42 Dose: 500 mg Documented by: Aspirin (Halfprin) 81 mg PO DAILY [facility] Last Admin: 06/16/20 08:40 Dose: 81 mg Documented by: Calcium Carbonate (Calcium Carbonate/Vitamin D 1250 Mg-200 Unit) 1 tab PO DAILY [facility] Last Admin: 06/16/20 08:39 Dose: 1 tab Documented by: Clopidogrel Bisulfate (Plavix) 75 mg PO DAILY [facility] Dexamethasone (Dexamethasone) 6 mg PO DAILY [facility] Last Admin: 06/16/20 08:40 Dose: 6 mg Documented by: Enoxaparin Sodium (Lovenox) 40 mg SUBCUT BID [facility] Last Admin: 06/16/20 19:37 Dose: 40 mg Documented by: Ibuprofen (Motrin) 600 mg PO Q6H PRN PRN Reason: Pain (mild 1-3) Last Admin: 06/17/20 05:00 Dose: 600 mg Documented by: Lisinopril (Prinivil) 5 mg PO DAILY [facility] Metoprolol Succinate (Toprol Xl) 25 mg PO DAILY [facility] Multivitamins/Minerals/Vitamin C (Tab-A-Aure) 1 tab PO DAILY [facility] Last Admin: 06/16/20 08:40 Dose: 1 tab Documented by: Nitroglycerin (Nitrostat) 0.4 mg SL ASDIRECTED PRN PRN Reason: CHEST PAIN Ondansetron HCl (Zofran Odt) 4 mg PO Q6H PRN PRN Reason: nausea, able to take PO Promethazine HCl/Codeine (Phenergan With Codeine) 0 ml PO Q6H PRN PRN Reason: Cough Last Admin: 06/16/20 19:37 Dose: 5 ml Documented by: Simvastatin (Zocor) 40 mg PO BEDTIME [facility] Last Admin: 06/16/20 19:37 Dose: 40 mg Documented by: Temazepam (Restoril) 15 mg PO BEDTIME PRN PRN Reason: Sleep Last Admin: 06/16/20 00:31 Dose: 15 mg Documented by: Zinc Sulfate (Zincate) 220 mg PO DAILY [facility] Last Admin: 06/16/20 08:42 Dose: 220 mg Documented by: Discontinued Medications Cholecalciferol (Vitamin D3) 50 mcg PO ONETIME ONE Stop: 06/14/20 20:01 Last Admin: 06/14/20 20:15 Dose: 50 mcg Documented by: Clopidogrel Bisulfate (Plavix) 75 mg PO DAILY [facility] Last Admin: 06/16/20 08:41 Dose: 75 mg Documented by: Enoxaparin Sodium (Lovenox) 40 mg SUBCUT Q24H [facility] Last Admin: 06/14/20 20:15 Dose: 40 mg Documented by: Sodium Chloride (Normal Saline) 1,000 mls @ 125 mls/hr IV ASDIRECTED [facility] Last Admin: 06/15/20 08:28 Dose: 125 mls/hr Documented by: Lisinopril (Prinivil) 5 mg PO DAILY [facility] Last Admin: 06/16/20 08:41 Dose: 5 mg Documented by: Metoprolol Succinate (Toprol Xl) 25 mg PO DAILY [facility] Last Admin: 06/16/20 08:41 Dose: 25 mg Documented by: Nitroglycerin (Nitrostat) 0.4 mg SL ASDIRECTED PRN PRN Reason: Chest Pain Rosuvastatin Calcium [Rosuvastatin Calcium] 20 Mg Ptom 0 mg PO BEDTIME [facility] Last Admin: 06/15/20 21:00 Dose: 20 mg Documented by: Ondansetron HCl (Zofran Odt) 4 mg PO ONETIME ONE Stop: 06/14/20 15:06 Last Admin: 06/14/20 15:10 Dose: 4 mg Documented by: - Exam Quality Assessment: No: Supplemental Oxygen General: Alert, Oriented, Cooperative, No Acute Distress Neck: Supple Lungs: Clear to Auscultation, Normal Respiratory Effort. No: Crackles, Rales, Rhonchi, Wheezing Cardiovascular: Regular Rate, Regular Rhythm GI/Abdominal Exam: Normal Bowel Sounds, Soft, Non-Tender Peripheral Pulses: 2+: Dorsalis Pedis (L), Dorsalis Pedis (R) Skin: Warm, Dry, Intact Neurological: No New Focal Deficit Psy/Mental Status: Alert, Normal Affect, Normal Mood Sepsis Event Note - Evaluation Sepsis Screening Result: No Definite Risk - Focused Exam Vital Signs: Vital Signs Temp Temp Pulse Resp BP Pulse Ox 06/17/20 06:50 98.7 F 06/17/20 06:00 98.9 F 06/17/20 05:00 102.1 F H 06/17/20 04:00 102.1 F H 73 18 147/62 H 91 L 06/17/20 01:33 63 06/16/20 20:00 98 F 74 18 122/64 92 L - Problem List & Annotations (1) COVID-19 SNOMED Code(s): 048342361 Code(s): U07.1 - COVID-19 Status: Acute Current Visit: Yes (2) Generalized weakness SNOMED Code(s): 50763561 Code(s): R53.1 - WEAKNESS Status: Acute Current Visit: Yes (3) Hyponatremia SNOMED Code(s): 77758415 Code(s): E87.1 - HYPO-OSMOLALITY AND HYPONATREMIA Status: Acute Current Visit: Yes - Problem List Review Problem List Initiated/Reviewed/Updated: Yes - My Orders Last 24 Hours: My Active Orders 06/16/20 08:00 Chest 2V [CR] Routine 06/16/20 15:37 Nitroglycerin [Nitrostat] 0.4 mg SL ASDIRECTED PRN 06/16/20 20:00 Simvastatin [Zocor] 40 mg PO BEDTIME 06/17/20 06:50 D Dimer [D-DIMER QUANTITATIVE] [COAG] AM 06/17/20 08:00 Clopidogrel [Plavix] 75 mg PO DAILY Metoprolol Succinate [Toprol XL] 25 mg PO DAILY lisinopriL [Prinivil] 5 mg PO DAILY 06/18/20 05:11 CBC WITH AUTO DIFF [HEME] AM COMPREHENSIVE METABOLIC PN,CMP [CHEM] AM CRP [C-REACTIVE PROTEIN] [CHEM] AM - Plan Plan:: Reviewed laboratory work this am. Troponin indeterminate. Sodium has improved to 134. Will look at d/c IV fluids this afternoon. Repeat labs in am. Troponin this afternoon remained indeterminate, no elevation noted. Appears pain is consistent with pleuritic chest pain and will start dexamethasone 6mg orally daily. EKG showed normal sinus rhythm today. Lovenox switched to 40mg BID as patient is at risk for hypercoagulable state. Discussed cough medicine with patient and will order to help get rest tonight. Will reevaluate in am and if continues to show improvement and no concerning findings on labs will look at discharge. Pt in agreement. No significant changes in laboratory work, all remain stable. Patient has been drinking fluids without any difficulty today. Will continue with dexamethasone secondary to pleuritic chest discomfort. Repeat troponin tests were unchanged. Chest x-ray done and shows no new infiltrate. Will switch to acute care at this time.
[2020-06-17] MEDS: Zinc Sulfate 220 MG Cap PO SCH (08:14)
[2020-06-17] MEDS: Metoprolol Succinate 25 MG Tab.ER PO SCH (08:15)
[2020-06-17] MEDS: Dexamethasone 4 MG Tab PO SCH (08:15)
[2020-06-17] MEDS: Multivitamin Tab PO SCH (08:15)
[2020-06-17] MEDS: Clopidogrel 75 MG Tab PO SCH (08:16)
[2020-06-17] MEDS: Calcium Carbonate/Vitamin D3 1250 MG-200 Unit Tab PO SCH (08:16)
[2020-06-17] MEDS: Enoxaparin 40 MG/0.4 ML Syringe SUBCUT SCH ×2 (08:16→19:35)
[2020-06-17] MEDS: Aspirin 81 MG Tab.EC PO SCH (08:16)
[2020-06-17] MEDS: Lisinopril 5 MG Tab PO SCH (08:16)
[2020-06-17] MEDS: Ascorbic Acid 500 MG Tab PO SCH (08:16)
--- NOTE | 2020-06-17 10:08 | PCM.PN ---
- General Info Date of Service: 06/17/20 Functional Status: Reports: Pain Controlled, Tolerating Diet, Ambulating, Urinating. Denies: New Symptoms - Review of Systems General: Reports: Fever (this morning) HEENT: Denies: Headaches, Sinus Congestion, Sore Throat Pulmonary: Reports: Cough (improved). Denies: Shortness of Breath, Pleuritic Chest Pain Cardiovascular: Denies: Chest Pain Gastrointestinal: Reports: No Symptoms Genitourinary: Reports: No Symptoms Musculoskeletal: Reports: No Symptoms Skin: Reports: No Symptoms Neurological: Reports: No Symptoms Psychiatric: Reports: No Symptoms - Patient Data Vitals - Most Recent: Last Vital Signs Temp 98.7 F 06/17/20 06:50 Pulse 73 06/17/20 08:15 Resp 18 06/17/20 04:00 BP 118/82 06/17/20 08:16 Pulse Ox 91 L 06/17/20 04:00 Weight - Most Recent: 190 lb Lab Results Last 24 Hours: Laboratory Results - last 24 hr 06/17/20 06/17/20 06/17/20 Range/Units 06:50 06:50 06:50 WBC 8.6 (5.0-10.0) 10^3/uL RBC 4.49 L (4.50-6.00) 10^6/uL Hgb 14.4 (14.0-18.0) g/dL Hct 41.7 (40.0-54.0) % MCV 92.9 (82.0-94.0) fL MCH 32.1 H (27.0-32.0) pg MCHC 34.5 (33.0-38.0) g/dL RDW Coeff of [place] 12.9 (11.0-15.0) % Plt Count 203 (150-400) 10^3/uL Neut % (Auto) 85.4 H (35-85) % Lymph % (Auto) 10.1 (10-55) % [place] % (Auto) 4.4 (0-16) % Eos % (Auto) 0 (0-5) % Baso % (Auto) 0.1 (0-3) % Neut # (Auto) 7.36 H (1.80-7.00) 10^3/uL Lymph # (Auto) 0.87 L (1.00-4.80) 10^3/uL [place] # (Auto) 0.38 (0.00-0.80) 10^3/uL Eos # (Auto) 0.00 (0.00-0.45) 10^3/uL Baso # (Auto) 0.01 10^3/uL D-Dimer, Quantitative 0.50 (0.00-0.50) Sodium 134 L (136-145) mEq/L Potassium 4.1 (3.5-5.0) mEq/L Chloride 101 (98-106) mEq/L Carbon Dioxide 25 (21-32) mmol/L BUN 16 (7-18) mg/dL Creatinine 0.9 (0.7-1.3) mg/dL Est Cr Clr Drug Dosing 77.73 mL/min Estimated GFR (MDRD) > 60 (>=60) mL/min Glucose 106 H (75-99) mg/dL Calcium 8.1 L (8.4-10.1) mg/dL Total Bilirubin 0.5 (0.0-1.0) mg/dL AST 45 H (15-37) U/L ALT 66 (12-78) U/L Alkaline Phosphatase 65 (46-116) U/L C-Reactive Protein 4.7 H (0.2-0.8) mg/dL Total Protein 6.3 L (6.4-8.2) g/dL Albumin 2.5 L (3.4-5.0) g/dL Med Orders - Current: Current Medications Acetaminophen (Tylenol) 650 mg PO Q4H PRN PRN Reason: Pain (Mild 1-3)/fever Last Admin: 06/16/20 04:55 Dose: 650 mg Documented by: Ascorbic Acid (Vitamin C) 500 mg PO DAILY [facility] Last Admin: 06/17/20 08:16 Dose: 500 mg Documented by: Aspirin (Halfprin) 81 mg PO DAILY [facility] Last Admin: 06/17/20 08:16 Dose: 81 mg Documented by: Calcium Carbonate (Calcium Carbonate/Vitamin D 1250 Mg-200 Unit) 1 tab PO DAILY [facility] Last Admin: 06/17/20 08:16 Dose: 1 tab Documented by: Clopidogrel Bisulfate (Plavix) 75 mg PO DAILY [facility] Last Admin: 06/17/20 08:16 Dose: 75 mg Documented by: Dexamethasone (Dexamethasone) 6 mg PO DAILY [facility] Last Admin: 06/17/20 08:15 Dose: 6 mg Documented by: Enoxaparin Sodium (Lovenox) 40 mg SUBCUT BID [facility] Last Admin: 06/17/20 08:16 Dose: 40 mg Documented by: Ibuprofen (Motrin) 600 mg PO Q6H PRN PRN Reason: Pain (mild 1-3) Last Admin: 06/17/20 05:00 Dose: 600 mg Documented by: Lisinopril (Prinivil) 5 mg PO DAILY [facility] Last Admin: 06/17/20 08:16 Dose: 5 mg Documented by: Metoprolol Succinate (Toprol Xl) 25 mg PO DAILY [facility] Last Admin: 06/17/20 08:15 Dose: 25 mg Documented by: Multivitamins/Minerals/Vitamin C (Tab-A-Aure) 1 tab PO DAILY [facility] Last Admin: 06/17/20 08:15 Dose: 1 tab Documented by: Nitroglycerin (Nitrostat) 0.4 mg SL ASDIRECTED PRN PRN Reason: CHEST PAIN Ondansetron HCl (Zofran Odt) 4 mg PO Q6H PRN PRN Reason: nausea, able to take PO Promethazine HCl/Codeine (Phenergan With Codeine) 0 ml PO Q6H PRN PRN Reason: Cough Last Admin: 06/16/20 19:37 Dose: 5 ml Documented by: Simvastatin (Zocor) 40 mg PO BEDTIME [facility] Last Admin: 06/16/20 19:37 Dose: 40 mg Documented by: Temazepam (Restoril) 15 mg PO BEDTIME PRN PRN Reason: Sleep Last Admin: 06/16/20 00:31 Dose: 15 mg Documented by: Zinc Sulfate (Zincate) 220 mg PO DAILY [facility] Last Admin: 06/17/20 08:14 Dose: 220 mg Documented by: Discontinued Medications Cholecalciferol (Vitamin D3) 50 mcg PO ONETIME ONE Stop: 06/14/20 20:01 Last Admin: 06/14/20 20:15 Dose: 50 mcg Documented by: Clopidogrel Bisulfate (Plavix) 75 mg PO DAILY [facility] Last Admin: 06/16/20 08:41 Dose: 75 mg Documented by: Enoxaparin Sodium (Lovenox) 40 mg SUBCUT Q24H [facility] Last Admin: 06/14/20 20:15 Dose: 40 mg Documented by: Sodium Chloride (Normal Saline) 1,000 mls @ 125 mls/hr IV ASDIRECTED [facility] Last Admin: 06/15/20 08:28 Dose: 125 mls/hr Documented by: Lisinopril (Prinivil) 5 mg PO DAILY [facility] Last Admin: 06/16/20 08:41 Dose: 5 mg Documented by: Metoprolol Succinate (Toprol Xl) 25 mg PO DAILY [facility] Last Admin: 06/16/20 08:41 Dose: 25 mg Documented by: Nitroglycerin (Nitrostat) 0.4 mg SL ASDIRECTED PRN PRN Reason: Chest Pain Rosuvastatin Calcium [Rosuvastatin Calcium] 20 Mg Ptom 0 mg PO BEDTIME [facility] Last Admin: 06/15/20 21:00 Dose: 20 mg Documented by: Ondansetron HCl (Zofran Odt) 4 mg PO ONETIME ONE Stop: 06/14/20 15:06 Last Admin: 06/14/20 15:10 Dose: 4 mg Documented by: - Exam Quality Assessment: No: Supplemental Oxygen General: Alert, Oriented Neck: Supple Lungs: Clear to Auscultation, Normal Respiratory Effort Cardiovascular: Regular Rate, Regular Rhythm GI/Abdominal Exam: Normal Bowel Sounds, Soft, Non-Tender, No Distention Extremities: Normal Inspection, Normal Range of Motion, No Pedal Edema Skin: Warm, Dry, Intact Neurological: No New Focal Deficit Psy/Mental Status: Alert, Normal Affect, Normal Mood Sepsis Event Note - Evaluation Sepsis Screening Result: No Definite Risk - Focused Exam Vital Signs: Vital Signs Temp Temp Pulse Pulse Resp BP BP 06/17/20 08:16 118/82 06/17/20 08:15 73 118/82 06/17/20 06:50 98.7 F 06/17/20 06:00 98.9 F 06/17/20 05:00 102.1 F H 06/17/20 04:00 102.1 F H 73 18 147/62 H 06/17/20 01:33 63 Pulse Ox 06/17/20 08:16 06/17/20 08:15 06/17/20 06:50 06/17/20 06:00 06/17/20 05:00 06/17/20 04:00 91 L 06/17/20 01:33 - Problem List & Annotations (1) COVID-19 SNOMED Code(s): 474621690 Code(s): U07.1 - COVID-19 Status: Acute Current Visit: Yes (2) Generalized weakness SNOMED Code(s): 19910131 Code(s): R53.1 - WEAKNESS Status: Acute Current Visit: Yes (3) Hyponatremia SNOMED Code(s): 36807914 Code(s): E87.1 - HYPO-OSMOLALITY AND HYPONATREMIA Status: Acute Current Visit: Yes - Problem List Review Problem List Initiated/Reviewed/Updated: Yes - My Orders Last 24 Hours: My Active Orders 06/16/20 15:37 Nitroglycerin [Nitrostat] 0.4 mg SL ASDIRECTED PRN 06/16/20 20:00 Simvastatin [Zocor] 40 mg PO BEDTIME 06/17/20 08:00 Clopidogrel [Plavix] 75 mg PO DAILY Metoprolol Succinate [Toprol XL] 25 mg PO DAILY lisinopriL [Prinivil] 5 mg PO DAILY 06/18/20 05:11 CBC WITH AUTO DIFF [HEME] AM COMPREHENSIVE METABOLIC PN,CMP [CHEM] AM CRP [C-REACTIVE PROTEIN] [CHEM] AM - Plan Plan:: Reviewed laboratory work this am. Troponin indeterminate. Sodium has improved to 134. Will look at d/c IV fluids this afternoon. Repeat labs in am. Troponin this afternoon remained indeterminate, no elevation noted. Appears pain is consistent with pleuritic chest pain and will start dexamethasone 6mg orally daily. EKG showed normal sinus rhythm today. Lovenox switched to 40mg BID as patient is at risk for hypercoagulable state. Discussed cough medicine with patient and will order to help get rest tonight. Will reevaluate in am and if continues to show improvement and no concerning findings on labs will look at discharge. Pt in agreement. 06/16/2020 No significant changes in laboratory work, all remain stable. Patient has been drinking fluids without any difficulty today. Will continue with dexamethasone secondary to pleuritic chest discomfort. Repeat troponin tests were unchanged. Chest x-ray done and shows no new infiltrate. Will switch to acute care at this time. 06/17/2020 Les continues to show improvement. Chest discomfort has subsided and cough has improved as well. Denies any new onset of symptoms. Had a fever again this morning and was given Tylenol which has been helping, currently afebrile. D- dimer has improved as well. Will look at discharge tomorrow morning if no new concerns. Patient in agreement.
[2020-06-17] MEDS: Simvastatin 40 MG Tab PO SCH (19:35)
[2020-06-17] MEDS: Codeine/Promethazine 10-6.25 MG/5 ML Syrup 5 ML UD Cup PO PRN (19:35)
[2020-06-17] MEDS: Temazepam 15 MG Cap PO PRN (20:16)
[2020-06-18] MEDS: Calcium Carbonate/Vitamin D3 1250 MG-200 Unit Tab PO SCH (07:28)
[2020-06-18] MEDS: Dexamethasone 4 MG Tab PO SCH (07:28)
[2020-06-18] MEDS: Metoprolol Succinate 25 MG Tab.ER PO SCH (07:28)
[2020-06-18] MEDS: Clopidogrel 75 MG Tab PO SCH (07:29)
[2020-06-18] MEDS: Ascorbic Acid 500 MG Tab PO SCH (07:29)
[2020-06-18] MEDS: Zinc Sulfate 220 MG Cap PO SCH (07:29)
[2020-06-18] MEDS: Multivitamin Tab PO SCH (07:29)
[2020-06-18] MEDS: Lisinopril 5 MG Tab PO SCH (07:29)
[2020-06-18] MEDS: Aspirin 81 MG Tab.EC PO SCH (07:29)
[2020-06-18] MEDS: Enoxaparin 40 MG/0.4 ML Syringe SUBCUT SCH ×2 (07:30→20:25)
[2020-06-18 07:33] LABS: CHLORIDE,CL 99 mEq/L (98-106); SODIUM,NA 134 mEq/L (136-145)
[2020-06-18] MEDS: Acetaminophen 325 MG Tab PO PRN (08:23)
--- NOTE | 2020-06-18 12:56 | PCM.PN ---
- General Info Date of Service: 06/18/20 Admission Dx/Problem (Free Text): Covid 19 infection Subjective Update: Rajinder is a 70 yo male who was admitted to the hospital with weakness with newly diagnosed COVID 19 infection. He states he has been having a persistent cough and this morning started to develop some intermittent left sided chest pain. States the pain is present with coughing and taking in a deep breath. Does notice some discomfort with palpation to the chest wall as well. States he didn't get a lot of sleep d/t the coughing. Overall, does admit to feeling better today. Was given IV fluids yesterday. 06/17/2020 Rajinder continues to have some chest discomfort with coughing only but has improved. States today he doesn't have much of an appetite. Denies any increase in shortness of breath. States he feels he is gradually showing improvement. No new onset of symptoms. Has been ambulating to the bathroom without difficulty. Continues to have intermittent low grade fevers. 06/18/2020 Rajinder admits to not feeling as well today. States he continues to have a lot of fatigue. Denies any loss of strength today. States he hasn't been sleeping well. Continues to not have much of an appetite but has been eating. Continues to use incentive spirometry. Has been running low grade fevers. Functional Status: Reports: Pain Controlled, Incentive Spirometry. Denies: New Symptoms - Review of Systems General: Reports: Fever, Fatigue, Appetite (decreased). Denies: Weakness HEENT: Reports: Headaches (dull). Denies: Sore Throat, Rhinitis Pulmonary: Reports: Cough. Denies: Sputum Cardiovascular: Denies: Chest Pain Gastrointestinal: Reports: No Symptoms Genitourinary: Reports: No Symptoms Skin: Reports: No Symptoms Neurological: Reports: No Symptoms - Patient Data Vitals - Most Recent: Last Vital Signs Temp 98.9 F 06/18/20 00:00 Pulse 70 06/18/20 07:28 Resp 18 06/18/20 00:00 BP 122/60 06/18/20 07:29 Pulse Ox 92 L 06/18/20 00:00 Weight - Most Recent: 190 lb Lab Results Last 24 Hours: Laboratory Results - last 24 hr 06/18/20 06/18/20 Range/Units 07:05 07:05 WBC 9.1 (5.0-10.0) 10^3/uL RBC 4.91 (4.50-6.00) 10^6/uL Hgb 15.6 (14.0-18.0) g/dL Hct 45.6 (40.0-54.0) % MCV 92.9 (82.0-94.0) fL MCH 31.8 (27.0-32.0) pg MCHC 34.2 (33.0-38.0) g/dL RDW Coeff of [place] 12.9 (11.0-15.0) % Plt Count 252 (150-400) 10^3/uL Neut % (Auto) 83.8 (35-85) % Lymph % (Auto) 10.8 (10-55) % Crow[place] % (Auto) 5.3 (0-16) % Eos % (Auto) 0 (0-5) % Baso % (Auto) 0.1 (0-3) % Neut # (Auto) 7.59 H (1.80-7.00) 10^3/uL Lymph # (Auto) 0.98 L (1.00-4.80) 10^3/uL Crowley # (Auto) 0.48 (0.00-0.80) 10^3/uL Eos # (Auto) 0.00 (0.00-0.45) 10^3/uL Baso # (Auto) 0.01 10^3/uL Sodium 134 L (136-145) mEq/L Potassium 4.3 (3.5-5.0) mEq/L Chloride 99 (98-106) mEq/L Carbon Dioxide 29 (21-32) mmol/L BUN 17 (7-18) mg/dL Creatinine 1.0 (0.7-1.3) mg/dL Est Cr Clr Drug Dosing 69.96 mL/min Estimated GFR (MDRD) > 60 (>=60) mL/min Glucose 108 H (75-99) mg/dL Calcium 8.5 (8.4-10.1) mg/dL Total Bilirubin 0.6 (0.0-1.0) mg/dL AST 83 H (15-37) U/L ALT 133 H (12-78) U/L Alkaline Phosphatase 75 (46-116) U/L C-Reactive Protein 3.7 H (0.2-0.8) mg/dL Total Protein 6.8 (6.4-8.2) g/dL Albumin 2.6 L (3.4-5.0) g/dL Med Orders - Current: Current Medications Acetaminophen (Tylenol) 650 mg PO Q4H PRN PRN Reason: Pain (Mild 1-3)/fever Last Admin: 06/18/20 08:23 Dose: 650 mg Documented by: Ascorbic Acid (Vitamin C) 500 mg PO DAILY [facility] Last Admin: 06/18/20 07:29 Dose: 500 mg Documented by: Aspirin (Halfprin) 81 mg PO DAILY [facility] Last Admin: 06/18/20 07:29 Dose: 81 mg Documented by: Calcium Carbonate (Calcium Carbonate/Vitamin D 1250 Mg-200 Unit) 1 tab PO DAILY [facility] Last Admin: 06/18/20 07:28 Dose: 1 tab Documented by: Clopidogrel Bisulfate (Plavix) 75 mg PO DAILY [facility] Last Admin: 06/18/20 07:29 Dose: 75 mg Documented by: Dexamethasone (Dexamethasone) 6 mg PO DAILY [facility] Last Admin: 06/18/20 07:28 Dose: 6 mg Documented by: Enoxaparin Sodium (Lovenox) 40 mg SUBCUT BID [facility] Last Admin: 06/18/20 07:30 Dose: 40 mg Documented by: Ibuprofen (Motrin) 600 mg PO Q6H PRN PRN Reason: Pain (mild 1-3) Last Admin: 06/17/20 05:00 Dose: 600 mg Documented by: Lisinopril (Prinivil) 5 mg PO DAILY [facility] Last Admin: 06/18/20 07:29 Dose: 5 mg Documented by: Metoprolol Succinate (Toprol Xl) 25 mg PO DAILY [facility] Last Admin: 06/18/20 07:28 Dose: 25 mg Documented by: Multivitamins/Minerals/Vitamin C (Tab-A-Aure) 1 tab PO DAILY [facility] Last Admin: 06/18/20 07:29 Dose: 1 tab Documented by: Nitroglycerin (Nitrostat) 0.4 mg SL ASDIRECTED PRN PRN Reason: CHEST PAIN Ondansetron HCl (Zofran Odt) 4 mg PO Q6H PRN PRN Reason: nausea, able to take PO Promethazine HCl/Codeine (Phenergan With Codeine) 0 ml PO Q6H PRN PRN Reason: Cough Last Admin: 06/17/20 19:35 Dose: 5 ml Documented by: Simvastatin (Zocor) 40 mg PO BEDTIME [facility] Last Admin: 06/17/20 19:35 Dose: 40 mg Documented by: Temazepam (Restoril) 15 mg PO BEDTIME PRN PRN Reason: Sleep Last Admin: 06/17/20 20:16 Dose: 15 mg Documented by: Zinc Sulfate (Zincate) 220 mg PO DAILY [facility] Last Admin: 06/18/20 07:29 Dose: 220 mg Documented by: Discontinued Medications Cholecalciferol (Vitamin D3) 50 mcg PO ONETIME ONE Stop: 06/14/20 20:01 Last Admin: 06/14/20 20:15 Dose: 50 mcg Documented by: Clopidogrel Bisulfate (Plavix) 75 mg PO DAILY [facility] Last Admin: 06/16/20 08:41 Dose: 75 mg Documented by: Enoxaparin Sodium (Lovenox) 40 mg SUBCUT Q24H [facility] Last Admin: 06/14/20 20:15 Dose: 40 mg Documented by: Sodium Chloride (Normal Saline) 1,000 mls @ 125 mls/hr IV ASDIRECTED [facility] Last Admin: 06/15/20 08:28 Dose: 125 mls/hr Documented by: Lisinopril (Prinivil) 5 mg PO DAILY [facility] Last Admin: 06/16/20 08:41 Dose: 5 mg Documented by: Metoprolol Succinate (Toprol Xl) 25 mg PO DAILY [facility] Last Admin: 06/16/20 08:41 Dose: 25 mg Documented by: Nitroglycerin (Nitrostat) 0.4 mg SL ASDIRECTED PRN PRN Reason: Chest Pain Rosuvastatin Calcium [Rosuvastatin Calcium] 20 Mg Ptom 0 mg PO BEDTIME [facility] Last Admin: 06/15/20 21:00 Dose: 20 mg Documented by: Ondansetron HCl (Zofran Odt) 4 mg PO ONETIME ONE Stop: 06/14/20 15:06 Last Admin: 06/14/20 15:10 Dose: 4 mg Documented by: - Exam Quality Assessment: No: Supplemental Oxygen General: Alert, Oriented Neck: Supple Lungs: Normal Respiratory Effort, Decreased Breath Sounds Cardiovascular: Regular Rate, Regular Rhythm GI/Abdominal Exam: Normal Bowel Sounds, Soft, Non-Tender, No Mass Peripheral Pulses: 2+: Dorsalis Pedis (L), Dorsalis Pedis (R) Skin: Warm, Dry, Intact Psy/Mental Status: Alert, Normal Affect, Normal Mood Sepsis Event Note - Evaluation Sepsis Screening Result: No Definite Risk - Focused Exam Vital Signs: Vital Signs Pulse BP 06/18/20 07:29 122/60 06/18/20 07:28 70 122/60 - Problem List & Annotations (1) COVID-19 SNOMED Code(s): 176136993 Code(s): U07.1 - COVID-19 Status: Acute Current Visit: Yes (2) Generalized weakness SNOMED Code(s): 99656241 Code(s): R53.1 - WEAKNESS Status: Acute Current Visit: Yes (3) Hyponatremia SNOMED Code(s): 33255773 Code(s): E87.1 - HYPO-OSMOLALITY AND HYPONATREMIA Status: Acute Current Visit: Yes - Problem List Review Problem List Initiated/Reviewed/Updated: Yes - Plan Plan:: Reviewed laboratory work this am. Troponin indeterminate. Sodium has improved to 134. Will look at d/c IV fluids this afternoon. Repeat labs in am. Troponin this afternoon remained indeterminate, no elevation noted. Appears pain is consistent with pleuritic chest pain and will start dexamethasone 6mg orally daily. EKG showed normal sinus rhythm today. Lovenox switched to 40mg BID as patient is at risk for hypercoagulable state. Discussed cough medicine with patient and will order to help get rest tonight. Will reevaluate in am and if continues to show improvement and no concerning findings on labs will look at discharge. Pt in agreement. 06/16/2020 No significant changes in laboratory work, all remain stable. Patient has been drinking fluids without any difficulty today. Will continue with dexamethasone secondary to pleuritic chest discomfort. Repeat troponin tests were unchanged. Chest x-ray done and shows no new infiltrate. Will switch to acute care at this time. 06/17/2020 Les continues to show improvement. Chest discomfort has subsided and cough has improved as well. Denies any new onset of symptoms. Had a fever again this morning and was given Tylenol which has been helping, currently afebrile. D- dimer has improved as well. Will look at discharge tomorrow morning if no new concerns. Patient in agreement. 06/18/2020 Oxygen saturation is 92% today and has been roughly 97%. Consulted with Dr. Mims and will closely monitor today. If oxygen improves and no new onset of symptoms will plan for discharge in the morning.
[2020-06-18] MEDS: Simvastatin 40 MG Tab PO SCH (20:25)
[2020-06-18] MEDS: Temazepam 15 MG Cap PO PRN (20:38)
[2020-06-19] MEDS: Lisinopril 5 MG Tab PO SCH (08:24)
[2020-06-19] MEDS: Zinc Sulfate 220 MG Cap PO SCH (08:24)
[2020-06-19] MEDS: Multivitamin Tab PO SCH (08:24)
[2020-06-19] MEDS: Aspirin 81 MG Tab.EC PO SCH (08:24)
[2020-06-19] MEDS: Dexamethasone 4 MG Tab PO SCH (08:25)
[2020-06-19] MEDS: Ascorbic Acid 500 MG Tab PO SCH (08:25)
[2020-06-19] MEDS: Calcium Carbonate/Vitamin D3 1250 MG-200 Unit Tab PO SCH (08:25)
[2020-06-19] MEDS: Metoprolol Succinate 25 MG Tab.ER PO SCH (08:25)
[2020-06-19] MEDS: Clopidogrel 75 MG Tab PO SCH (08:25)
[2020-06-19] MEDS: Enoxaparin 40 MG/0.4 ML Syringe SUBCUT SCH ×2 (08:26→19:45)
[2020-06-19] MEDS ORDERED: Rabies Vaccine (Avian) 2.5 Unit Inj Kit ONE (11:14)
--- NOTE | 2020-06-19 13:33 | PCM.PN ---
- General Info Date of Service: 06/19/20 Admission Dx/Problem (Free Text): Covid 19 infection Functional Status: Reports: Pain Controlled, Tolerating Diet. Denies: Ambulating - Review of Systems General: Reports: Weakness, Fatigue, Malaise, Chills. Denies: Fever HEENT: Reports: No Symptoms Pulmonary: Reports: Shortness of Breath. Denies: Cough Cardiovascular: Denies: Chest Pain, Edema, Lightheadedness Gastrointestinal: Denies: Abdominal Pain, Nausea, Vomiting Genitourinary: Reports: No Symptoms Musculoskeletal: Reports: No Symptoms Skin: Reports: No Symptoms Neurological: Reports: Weakness - Patient Data Vitals - Most Recent: Last Vital Signs Temp 98.3 F 06/19/20 08:00 Pulse 69 06/19/20 08:25 Resp 20 06/19/20 08:00 BP 130/82 06/19/20 08:25 Pulse Ox 93 L 06/19/20 08:00 Weight - Most Recent: 190 lb Med Orders - Current: Current Medications Acetaminophen (Tylenol) 650 mg PO Q4H PRN PRN Reason: Pain (Mild 1-3)/fever Last Admin: 06/18/20 08:23 Dose: 650 mg Documented by: Ascorbic Acid (Vitamin C) 500 mg PO DAILY [facility] Last Admin: 06/19/20 08:25 Dose: 500 mg Documented by: Aspirin (Halfprin) 81 mg PO DAILY [facility] Last Admin: 06/19/20 08:24 Dose: 81 mg Documented by: Calcium Carbonate (Calcium Carbonate/Vitamin D 1250 Mg-200 Unit) 1 tab PO DAILY [facility] Last Admin: 06/19/20 08:25 Dose: 1 tab Documented by: Clopidogrel Bisulfate (Plavix) 75 mg PO DAILY [facility] Last Admin: 06/19/20 08:25 Dose: 75 mg Documented by: Dexamethasone (Dexamethasone) 6 mg PO DAILY [facility] Last Admin: 06/19/20 08:25 Dose: 6 mg Documented by: Enoxaparin Sodium (Lovenox) 40 mg SUBCUT BID [facility] Last Admin: 06/19/20 08:26 Dose: 40 mg Documented by: Ibuprofen (Motrin) 600 mg PO Q6H PRN PRN Reason: Pain (mild 1-3) Last Admin: 06/17/20 05:00 Dose: 600 mg Documented by: Lisinopril (Prinivil) 5 mg PO DAILY [facility] Last Admin: 06/19/20 08:24 Dose: 5 mg Documented by: Metoprolol Succinate (Toprol Xl) 25 mg PO DAILY [facility] Last Admin: 06/19/20 08:25 Dose: 25 mg Documented by: Multivitamins/Minerals/Vitamin C (Tab-A-Aure) 1 tab PO DAILY [facility] Last Admin: 06/19/20 08:24 Dose: 1 tab Documented by: Nitroglycerin (Nitrostat) 0.4 mg SL ASDIRECTED PRN PRN Reason: CHEST PAIN Ondansetron HCl (Zofran Odt) 4 mg PO Q6H PRN PRN Reason: nausea, able to take PO Promethazine HCl/Codeine (Phenergan With Codeine) 0 ml PO Q6H PRN PRN Reason: Cough Last Admin: 06/17/20 19:35 Dose: 5 ml Documented by: Simvastatin (Zocor) 40 mg PO BEDTIME [facility] Last Admin: 06/18/20 20:25 Dose: 40 mg Documented by: Temazepam (Restoril) 15 mg PO BEDTIME PRN PRN Reason: Sleep Last Admin: 06/18/20 20:38 Dose: 15 mg Documented by: Zinc Sulfate (Zincate) 220 mg PO DAILY [facility] Last Admin: 06/19/20 08:24 Dose: 220 mg Documented by: Discontinued Medications Cholecalciferol (Vitamin D3) 50 mcg PO ONETIME ONE Stop: 06/14/20 20:01 Last Admin: 06/14/20 20:15 Dose: 50 mcg Documented by: Clopidogrel Bisulfate (Plavix) 75 mg PO DAILY [facility] Last Admin: 06/16/20 08:41 Dose: 75 mg Documented by: Enoxaparin Sodium (Lovenox) 40 mg SUBCUT Q24H [facility] Last Admin: 06/14/20 20:15 Dose: 40 mg Documented by: Sodium Chloride (Normal Saline) 1,000 mls @ 125 mls/hr IV ASDIRECTED [facility] Last Admin: 06/15/20 08:28 Dose: 125 mls/hr Documented by: Lisinopril (Prinivil) 5 mg PO DAILY [facility] Last Admin: 06/16/20 08:41 Dose: 5 mg Documented by: Metoprolol Succinate (Toprol Xl) 25 mg PO DAILY [facility] Last Admin: 06/16/20 08:41 Dose: 25 mg Documented by: Nitroglycerin (Nitrostat) 0.4 mg SL ASDIRECTED PRN PRN Reason: Chest Pain Rosuvastatin Calcium [Rosuvastatin Calcium] 20 Mg Ptom 0 mg PO BEDTIME [facility] Last Admin: 06/15/20 21:00 Dose: 20 mg Documented by: Ondansetron HCl (Zofran Odt) 4 mg PO ONETIME ONE Stop: 06/14/20 15:06 Last Admin: 06/14/20 15:10 Dose: 4 mg Documented by: Rabies Vaccine (Rabavert) Confirm Administered Dose 2.5 unit .ROUTE .STK-MED ONE Stop: 06/19/20 11:15 - Exam Quality Assessment: Supplemental Oxygen General: Alert, Oriented HEENT: Mucous Membr. Moist/[place] Neck: Supple Lungs: Decreased Breath Sounds, Crackles (bases) Cardiovascular: Regular Rate, Regular Rhythm GI/Abdominal Exam: Normal Bowel Sounds, Soft, Non-Tender Extremities: Normal Inspection, No Pedal Edema Skin: Warm, Dry Neurological: No New Focal Deficit Sepsis Event Note - Evaluation Sepsis Screening Result: No Definite Risk - Focused Exam Vital Signs: Vital Signs Temp Pulse Pulse Resp BP BP Pulse Ox 06/19/20 08:25 69 130/82 06/19/20 08:24 130/82 06/19/20 08:00 98.3 F 69 20 130/82 93 L 06/19/20 04:00 98.7 F 63 20 120/76 93 L - Problem List & Annotations (1) COVID-19 SNOMED Code(s): 304825006 Code(s): U07.1 - COVID-19 Status: Acute Priority: High Current Visit: Yes (2) Generalized weakness SNOMED Code(s): 84582824 Code(s): R53.1 - WEAKNESS Status: Acute Priority: High Current Visit: Yes (3) Hyponatremia SNOMED Code(s): 34033892 Code(s): E87.1 - HYPO-OSMOLALITY AND HYPONATREMIA Status: Acute Priority: High Current Visit: Yes - Problem List Review Problem List Initiated/Reviewed/Updated: Yes - My Orders Last 24 Hours: My Active Orders 06/19/20 10:31 Chest 2V [CR] Routine - Assessment Assessment:: Covid 19 Hyponatremia - Plan Plan:: Reviewed laboratory work this am. Troponin indeterminate. Sodium has improved to 134. Will look at d/c IV fluids this afternoon. Repeat labs in am. Troponin this afternoon remained indeterminate, no elevation noted. Appears pain is consistent with pleuritic chest pain and will start dexamethasone 6mg orally daily. EKG showed normal sinus rhythm today. Lovenox switched to 40mg BID as patient is at risk for hypercoagulable state. Discussed cough medicine with patient and will order to help get rest tonight. Will reevaluate in am and if continues to show improvement and no concerning findings on labs will look at discharge. Pt in agreement. 06/16/2020 No significant changes in laboratory work, all remain stable. Patient has been drinking fluids without any difficulty today. Will continue with dexamethasone secondary to pleuritic chest discomfort. Repeat troponin tests were unchanged. C hest x-ray done and shows no new infiltrate. Will switch to acute care at this time. 06/17/2020 Les continues to show improvement. Chest discomfort has subsided and cough has improved as well. Denies any new onset of symptoms. Had a fever again this morning and was given Tylenol which has been helping, currently afebrile. D- dimer has improved as well. Will look at discharge tomorrow morning if no new concerns. Patient in agreement. 06/18/2020 Oxygen saturation is 92% today and has been roughly 97%. Consulted with Dr. Mims and will closely monitor today. If oxygen improves and no new onset of symptoms will plan for discharge in the morning. 06-19-2020 Patient noting ongoing chills and mild shortness of breath. Oxygen sats were noted at 88% during the night so oxygen was initiated at 2 liters. Admits to minimal activity but has been trying to use the IS. States gets so chilled when up. Has been afebrile. Labs improving. Mild nonproductive cough. Due to hypoxia, change in respiratory status, will continue with oxygen. Switch to Solu Medrol IV. Start IV Rocephin and Zithromax as is 2 weeks in to COVID infection to cover for any possible secondary infection.
[2020-06-19] MEDS: cefTRIAXone 1 GM Vial IVPUSH SCH (13:54)
[2020-06-19] MEDS: Azithromycin 500 MG in Sodium Chloride 0.9% 250 ML IV SCH (15:08)
[2020-06-19] MEDS: Simvastatin 40 MG Tab PO SCH (19:45)
[2020-06-19] MEDS: methylPREDNISolone Sodium Succinate 125 MG/2 ML SDV IVPUSH SCH (19:46)
[2020-06-20] MEDS: Ascorbic Acid 500 MG Tab PO SCH (07:23)
[2020-06-20] MEDS: Calcium Carbonate/Vitamin D3 1250 MG-200 Unit Tab PO SCH (07:23)
[2020-06-20] MEDS: Aspirin 81 MG Tab.EC PO SCH (07:24)
[2020-06-20] MEDS: Enoxaparin 40 MG/0.4 ML Syringe SUBCUT SCH ×2 (07:24→20:01)
[2020-06-20] MEDS: Zinc Sulfate 220 MG Cap PO SCH (07:24)
[2020-06-20] MEDS: Clopidogrel 75 MG Tab PO SCH (07:24)
[2020-06-20] MEDS: methylPREDNISolone Sodium Succinate 125 MG/2 ML SDV IVPUSH SCH ×2 (07:25→20:01)
[2020-06-20] MEDS: Multivitamin Tab PO SCH (07:25)
[2020-06-20] MEDS: Metoprolol Succinate 25 MG Tab.ER PO SCH (07:34)
[2020-06-20] MEDS: Lisinopril 5 MG Tab PO SCH (07:34)
--- NOTE | 2020-06-20 08:36 | PCM.PN ---
- General Info Date of Service: 06/20/20 Admission Dx/Problem (Free Text): Covid 19 infection Functional Status: Reports: Pain Controlled, Tolerating Diet, Ambulating, Urinating - Review of Systems General: Reports: Fatigue, Malaise, Chills. Denies: Fever, Weakness HEENT: Reports: Rhinitis. Denies: Ear Pain, Sinus Congestion Pulmonary: Reports: Shortness of Breath, Cough Cardiovascular: Denies: Chest Pain, Edema, Lightheadedness Gastrointestinal: Denies: Abdominal Pain, Nausea, Vomiting Genitourinary: Reports: No Symptoms Musculoskeletal: Reports: No Symptoms Skin: Reports: No Symptoms Neurological: Reports: Weakness - Patient Data Vitals - Most Recent: Last Vital Signs Temp 97.0 F 06/20/20 04:00 Pulse 72 06/20/20 07:34 Resp 16 06/20/20 04:00 BP 130/91 H 06/20/20 07:34 Pulse Ox 96 06/20/20 04:00 Weight - Most Recent: 190 lb Med Orders - Current: Current Medications Acetaminophen (Tylenol) 650 mg PO Q4H PRN PRN Reason: Pain (Mild 1-3)/fever Last Admin: 06/18/20 08:23 Dose: 650 mg Documented by: Ascorbic Acid (Vitamin C) 500 mg PO DAILY [facility] Last Admin: 06/20/20 07:23 Dose: 500 mg Documented by: Aspirin (Halfprin) 81 mg PO DAILY [facility] Last Admin: 06/20/20 07:24 Dose: 81 mg Documented by: Calcium Carbonate (Calcium Carbonate/Vitamin D 1250 Mg-200 Unit) 1 tab PO DAILY [facility] Last Admin: 06/20/20 07:23 Dose: 1 tab Documented by: Ceftriaxone Sodium (Rocephin) 1 gm IVPUSH Q24H [facility] Last Admin: 06/19/20 13:54 Dose: 1 gm Documented by: Clopidogrel Bisulfate (Plavix) 75 mg PO DAILY [facility] Last Admin: 06/20/20 07:24 Dose: 75 mg Documented by: Enoxaparin Sodium (Lovenox) 40 mg SUBCUT BID [facility] Last Admin: 06/20/20 07:24 Dose: 40 mg Documented by: Azithromycin 500 mg/ Sodium (Chloride) 250 mls @ 250 mls/hr IV Q24H [facility] Last Admin: 06/19/20 15:08 Dose: 250 mls/hr Documented by: Ibuprofen (Motrin) 600 mg PO Q6H PRN PRN Reason: Pain (mild 1-3) Last Admin: 06/17/20 05:00 Dose: 600 mg Documented by: Lisinopril (Prinivil) 5 mg PO DAILY [facility] Last Admin: 06/20/20 07:34 Dose: 5 mg Documented by: Methylprednisolone Sodium Succinate (Solu-Medrol) 62.5 mg IVPUSH BID [facility] Last Admin: 06/20/20 07:25 Dose: 62.5 mg Documented by: Metoprolol Succinate (Toprol Xl) 25 mg PO DAILY [facility] Last Admin: 06/20/20 07:34 Dose: 25 mg Documented by: Multivitamins/Minerals/Vitamin C (Tab-A-Aure) 1 tab PO DAILY [facility] Last Admin: 06/20/20 07:25 Dose: 1 tab Documented by: Nitroglycerin (Nitrostat) 0.4 mg SL ASDIRECTED PRN PRN Reason: CHEST PAIN Ondansetron HCl (Zofran Odt) 4 mg PO Q6H PRN PRN Reason: nausea, able to take PO Promethazine HCl/Codeine (Phenergan With Codeine) 0 ml PO Q6H PRN PRN Reason: Cough Last Admin: 06/17/20 19:35 Dose: 5 ml Documented by: Simvastatin (Zocor) 40 mg PO BEDTIME [facility] Last Admin: 06/19/20 19:45 Dose: 40 mg Documented by: Temazepam (Restoril) 15 mg PO BEDTIME PRN PRN Reason: Sleep Last Admin: 06/18/20 20:38 Dose: 15 mg Documented by: Zinc Sulfate (Zincate) 220 mg PO DAILY [facility] Last Admin: 06/20/20 07:24 Dose: 220 mg Documented by: Discontinued Medications Cholecalciferol (Vitamin D3) 50 mcg PO ONETIME ONE Stop: 06/14/20 20:01 Last Admin: 06/14/20 20:15 Dose: 50 mcg Documented by: Clopidogrel Bisulfate (Plavix) 75 mg PO DAILY [facility] Last Admin: 06/16/20 08:41 Dose: 75 mg Documented by: Dexamethasone (Dexamethasone) 6 mg PO DAILY [facility] Last Admin: 06/19/20 08:25 Dose: 6 mg Documented by: Enoxaparin Sodium (Lovenox) 40 mg SUBCUT Q24H [facility] Last Admin: 06/14/20 20:15 Dose: 40 mg Documented by: Sodium Chloride (Normal Saline) 1,000 mls @ 125 mls/hr IV ASDIRECTED [facility] Last Admin: 06/15/20 08:28 Dose: 125 mls/hr Documented by: Lisinopril (Prinivil) 5 mg PO DAILY [facility] Last Admin: 06/16/20 08:41 Dose: 5 mg Documented by: Metoprolol Succinate (Toprol Xl) 25 mg PO DAILY [facility] Last Admin: 06/16/20 08:41 Dose: 25 mg Documented by: Nitroglycerin (Nitrostat) 0.4 mg SL ASDIRECTED PRN PRN Reason: Chest Pain Rosuvastatin Calcium [Rosuvastatin Calcium] 20 Mg Ptom 0 mg PO BEDTIME [facility] Last Admin: 06/15/20 21:00 Dose: 20 mg Documented by: Ondansetron HCl (Zofran Odt) 4 mg PO ONETIME ONE Stop: 06/14/20 15:06 Last Admin: 06/14/20 15:10 Dose: 4 mg Documented by: - Exam Quality Assessment: Supplemental Oxygen General: Alert, Oriented HEENT: Mucous Membr. Moist/Ono Neck: Supple Lungs: Decreased Breath Sounds, Crackles (RLL) Cardiovascular: Regular Rate, Regular Rhythm GI/Abdominal Exam: Normal Bowel Sounds, Soft, Non-Tender Extremities: Normal Inspection, No Pedal Edema Skin: Warm, Dry Neurological: No New Focal Deficit Sepsis Event Note - Evaluation Sepsis Screening Result: No Definite Risk - Focused Exam Vital Signs: Vital Signs Temp Pulse Pulse Resp BP BP BP 06/20/20 07:34 72 130/91 H 06/20/20 04:00 97.0 F 72 16 125/80 06/20/20 00:00 96.8 F L 59 L 15 151/99 H Pulse Ox 06/20/20 07:34 06/20/20 04:00 96 06/20/20 00:00 96 - Problem List & Annotations (1) COVID-19 SNOMED Code(s): 047297232 Code(s): U07.1 - COVID-19 Status: Acute Priority: High Current Visit: Yes (2) Generalized weakness SNOMED Code(s): 48433502 Code(s): R53.1 - WEAKNESS Status: Acute Priority: High Current Visit: Yes (3) Hyponatremia SNOMED Code(s): 67845610 Code(s): E87.1 - HYPO-OSMOLALITY AND HYPONATREMIA Status: Resolved Priority: High Current Visit: Yes - Problem List Review Problem List Initiated/Reviewed/Updated: Yes - My Orders Last 24 Hours: My Active Orders 06/19/20 10:31 Chest 2V [CR] Routine 06/19/20 14:00 cefTRIAXone [Rocephin] 1 gm IVPUSH Q24H 06/19/20 15:00 Azithromycin [Zithromax] 500 mg Sodium Chloride 0.9% [Normal Saline (AdvBag)] 250 ml IV Q24H 06/19/20 20:00 methylPREDNISolone Sod Succ [Solu-MEDROL] 62.5 mg IVPUSH BID - Assessment Assessment:: Covid 19 Hyponatremia - Plan Plan:: Reviewed laboratory work this am. Troponin indeterminate. Sodium has improved to 134. Will look at d/c IV fluids this afternoon. Repeat labs in am. Troponin this afternoon remained indeterminate, no elevation noted. Appears pain is consistent with pleuritic chest pain and will start dexamethasone 6mg orally daily. EKG showed normal sinus rhythm today. Lovenox switched to 40mg BID as patient is at risk for hypercoagulable state. Discussed cough medicine with patient and will order to help get rest tonight. Will reevaluate in am and if continues to show improvement and no concerning findings on labs will look at discharge. Pt in agreement. 06/16/2020 No significant changes in laboratory work, all remain stable. Patient has been drinking fluids without any difficulty today. Will continue with dexamethasone secondary to pleuritic chest discomfort. Repeat troponin tests were unchanged. Chest x-ray done and shows no new infiltrate. Will switch to acute care at this time. 06/17/2020 Les continues to show improvement. Chest discomfort has subsided and cough has improved as well. Denies any new onset of symptoms. Had a fever again this morning and was given Tylenol which has been helping, currently afebrile. D- dimer has improved as well. Will look at discharge tomorrow morning if no new co ncerns. Patient in agreement. 06/18/2020 Oxygen saturation is 92% today and has been roughly 97%. Consulted with Dr. Mims and will closely monitor today. If oxygen improves and no new onset of symptoms will plan for discharge in the morning. 06-19-2020 Patient noting ongoing chills and mild shortness of breath. Oxygen sats were noted at 88% during the night so oxygen was initiated at 2 liters. Admits to minimal activity but has been trying to use the IS. States gets so chilled when up. Has been afebrile. Labs improving. Mild nonproductive cough. Due to hypoxia, change in respiratory status, will continue with oxygen. Switch to Solu Medrol IV. Start IV Rocephin and Zithromax as is 2 weeks in to COVID infection to cover for any possible secondary infection. 06-20-2020 Patient admits to feeling better this am. Has been up and walking more in his room. Oxygen sats checked when up on room air do drop to 84-86%. Cough mild and remains nonproductive. Lung sounds decreased with crackles in right base. Afebrile. Eating well. Will continue with IV Solu Medrol and antibiotics to cover for any secondary infection. Unable to discharge home with oxygen today due to unavailability of services on Sunday. Likely discharge home tomorrow once home oxygen is available.
[2020-06-20] MEDS: cefTRIAXone 1 GM Vial IVPUSH SCH (13:41)
[2020-06-20] MEDS: Azithromycin 500 MG in Sodium Chloride 0.9% 250 ML IV SCH (15:19)
[2020-06-20] MEDS: Simvastatin 40 MG Tab PO SCH (20:01)
[2020-06-21] MEDS: Ascorbic Acid 500 MG Tab PO SCH (07:28)
[2020-06-21] MEDS: Zinc Sulfate 220 MG Cap PO SCH (07:28)
[2020-06-21] MEDS: Calcium Carbonate/Vitamin D3 1250 MG-200 Unit Tab PO SCH (07:28)
[2020-06-21] MEDS: Enoxaparin 40 MG/0.4 ML Syringe SUBCUT SCH (07:29)
[2020-06-21] MEDS: Aspirin 81 MG Tab.EC PO SCH (07:29)
[2020-06-21] MEDS: Multivitamin Tab PO SCH (07:29)
[2020-06-21] MEDS: Clopidogrel 75 MG Tab PO SCH (07:29)
[2020-06-21] MEDS: methylPREDNISolone Sodium Succinate 125 MG/2 ML SDV IVPUSH SCH (07:30)
[2020-06-21] MEDS: Lisinopril 5 MG Tab PO SCH (07:40)
[2020-06-21] MEDS: Metoprolol Succinate 25 MG Tab.ER PO SCH (07:40)
[2020-06-21 09:36] LABS: CHLORIDE,CL 101 mEq/L (98-106); SODIUM,NA 137 mEq/L (136-145)
--- NOTE | 2020-06-21 12:27 | PCM.DCSUM1 ---
Discharge Summary - Hospital Course HPI Initial Comments: Rajinder is a 70 yo male who was admitted to the hospital with dehydration secondary to COVID infection on the 15 of June. He started to have symptoms on the 11 of June and each day symptoms would gradually get worse. He was admitted for IV fluids. Rajinder had pleuritic pain while in ED with cough and was started on dexamethasone. Unfortunately, he ended up getting secondary pneumonia and was started on IV antibiotics. Oxygne saturation decreased and required oxygen with ambulation. He states he is feeling the best he has since admission today. Feels as if he is ready to go home. Diagnosis: Stroke: No - Discharge Data Discharge Date: 06/21/20 Discharge Disposition: Home, Self-Care 01 Condition: Stable - Referral to Home Health Primary Care Physician: Leah Bueno NP - Discharge Diagnosis/Problem(s) (1) Generalized weakness SNOMED Code(s): 50965221 ICD Code: R53.1 - WEAKNESS Status: Acute Priority: High Current Visit: Yes (2) Hyponatremia SNOMED Code(s): 11643560 ICD Code: E87.1 - HYPO-OSMOLALITY AND HYPONATREMIA Status: Resolved Priority: High Current Visit: Yes (3) Hypoxia SNOMED Code(s): 536749312 ICD Code: R09.02 - HYPOXEMIA Status: Acute Current Visit: Yes (4) Pneumonia due to COVID-19 virus SNOMED Code(s): 847327274627794654 ICD Code: U07.1 - COVID-19; J12.89 - OTHER VIRAL PNEUMONIA Status: Acute Current Visit: Yes - Patient Instructions Diet: Usual Diet as Tolerated Activity: As Tolerated, Cough & Deep Breathe (incentive spirometry) Notify Provider of: Fever Other/Special Instructions: 1) Oxygen via nasal cannula at 1.5 lpm to keep saturation above 92%. 2) Ceftin 500mg twice a day for days. 3) Monitor for any worsening of fevers. If unable to break fever, increased shortness of breath or any concerns, advise returning for evaluation. 4) Follow up with primary in 1 week for recheck. - Discharge Plan *PRESCRIPTION DRUG MONITORING PROGRAM REVIEWED*: Not Applicable *COPY OF PRESCRIPTION DRUG MONITORING REPORT IN PATIENT JOANNA: Not Applicable Prescriptions/Med Rec: Cefuroxime Axetil [Ceftin] 500 mg PO BID #14 tablet Home Medications: Home Meds Aspirin [Halfprin] 81 mg PO DAILY 08/10/15 [History] Metoprolol Succinate [Toprol XL] 25 mg PO DAILY 08/10/15 [History] Multivitamin [Daily Multiple Vitamin] 1 tab PO DAILY 08/11/16 [History] [place]-3S/DHA/Epa/Fish Oil [[place]-3 Fish Oil 1,200 mg Sfgl] 3,600 mg PO DAILY 11/28/19 [History] Calcium Carb/Magnesium Oxid/D3 [Calcium Magnesium + D] 1 each PO DAILY 12/23/19 [History] Clopidogrel Bisulfate [Clopidogrel] 75 mg PO DAILY 12/23/19 [History] Nitroglycerin 0.4 mg SL ASDIRECTED PRN 12/23/19 [History] Rosuvastatin Calcium 20 mg PO DAILY 12/23/19 [History] lisinopriL [Lisinopril] 5 mg PO DAILY 12/23/19 [History] Acetaminophen [Tylenol] 650 mg PO Q4H PRN tablet 06/21/20 [Rx] Ascorbic Acid [Vitamin C] 500 mg PO DAILY tablet 06/21/20 [Rx] Cefuroxime Axetil [Ceftin] 500 mg PO BID #14 tablet 06/21/20 [Rx] Zinc Sulfate [Zincate] 220 mg PO DAILY cap 06/21/20 [Rx] Oxygen Therapy Mode: Nasal Cannula Oxygen Flow Rate (L/min): 1.5 (with ambulation) Patient Handouts: COVID-19, Home Oxygen Use, Adult Referrals: Juan Mims MD [ED Physician] - 06/28/20 - Discharge Summary/Plan Comment DC Time >30 min.: Yes Discharge Summary/Plan Comment: Repeat chest x-ray is stable today. Overall Rajinder is feeling well. Will discharge home today. Patient will need home oxygen as he is 88% on room air at rest. Patient does improve to 94% with 1.5L. Advise using with ambulation as well. Will initiate Ceftin 500mg BID for 7 days. Recheck with primary in 1 week. Please see additional instructions. - General Info Date of Service: 06/21/20 - Review of Systems General: Reports: No Symptoms HEENT: Reports: No Symptoms Pulmonary: Reports: Cough. Denies: Shortness of Breath Cardiovascular: Reports: No Symptoms Gastrointestinal: Reports: No Symptoms Musculoskeletal: Reports: No Symptoms Skin: Reports: No Symptoms Neurological: Reports: No Symptoms - Patient Data Vitals - Most Recent: Last Vital Signs Temp 96.5 F L 06/21/20 08:00 Pulse 73 06/21/20 08:00 Resp 18 06/21/20 08:00 BP 143/91 H 06/21/20 08:00 Pulse Ox 93 L 06/21/20 08:00 Weight - Most Recent: 190 lb Lab Results - Last 24 hrs: Laboratory Results - last 24 hr 06/21/20 06/21/20 Range/Units 08:40 09:15 WBC 12.1 H (5.0-10.0) 10^3/uL RBC 4.83 (4.50-6.00) 10^6/uL Hgb 15.4 (14.0-18.0) g/dL Hct 45.1 (40.0-54.0) % MCV 93.4 (82.0-94.0) fL MCH 31.9 (27.0-32.0) pg MCHC 34.1 (33.0-38.0) g/dL RDW Coeff of [place] 12.7 (11.0-15.0) % Plt Count 341 (150-400) 10^3/uL Neut % (Auto) 90.8 H (35-85) % Lymph % (Auto) 5.5 L (10-55) % [place] % (Auto) 3.2 (0-16) % Eos % (Auto) 0 (0-5) % Baso % (Auto) 0.5 (0-3) % Neut # (Auto) 11.00 H (1.80-7.00) 10^3/uL Lymph # (Auto) 0.66 L (1.00-4.80) 10^3/uL [place] # (Auto) 0.39 (0.00-0.80) 10^3/uL Eos # (Auto) 0.00 (0.00-0.45) 10^3/uL Baso # (Auto) 0.06 10^3/uL Sodium 137 (136-145) mEq/L Potassium 4.3 (3.5-5.0) mEq/L Chloride 101 (98-106) mEq/L Carbon Dioxide 27 (21-32) mmol/L BUN 27 H D (7-18) mg/dL Creatinine 1.0 (0.7-1.3) mg/dL Est Cr Clr Drug Dosing 69.96 mL/min Estimated GFR (MDRD) > 60 (>=60) mL/min Glucose 237 H D (75-99) mg/dL Calcium 8.8 (8.4-10.1) mg/dL Total Bilirubin 0.5 (0.0-1.0) mg/dL AST 73 H (15-37) U/L ALT 222 H (12-78) U/L Alkaline Phosphatase 78 (46-116) U/L C-Reactive Protein 1.5 H (0.2-0.8) mg/dL Total Protein 6.5 (6.4-8.2) g/dL Albumin 2.4 L (3.4-5.0) g/dL Med Orders - Current: Current Medications Acetaminophen (Tylenol) 650 mg PO Q4H PRN PRN Reason: Pain (Mild 1-3)/fever Last Admin: 06/18/20 08:23 Dose: 650 mg Documented by: Ascorbic Acid (Vitamin C) 500 mg PO DAILY [facility] Last Admin: 06/21/20 07:28 Dose: 500 mg Documented by: Aspirin (Halfprin) 81 mg PO DAILY [facility] Last Admin: 06/21/20 07:29 Dose: 81 mg Documented by: Calcium Carbonate (Calcium Carbonate/Vitamin D 1250 Mg-200 Unit) 1 tab PO DAILY [facility] Last Admin: 06/21/20 07:28 Dose: 1 tab Documented by: Ceftriaxone Sodium (Rocephin) 1 gm IVPUSH Q24H [facility] Last Admin: 06/20/20 13:41 Dose: 1 gm Documented by: Clopidogrel Bisulfate (Plavix) 75 mg PO DAILY [facility] Last Admin: 06/21/20 07:29 Dose: 75 mg Documented by: Enoxaparin Sodium (Lovenox) 40 mg SUBCUT BID [facility] Last Admin: 06/21/20 07:29 Dose: 40 mg Documented by: Azithromycin 500 mg/ Sodium (Chloride) 250 mls @ 250 mls/hr IV Q24H [facility] Last Admin: 06/20/20 15:19 Dose: 250 mls/hr Documented by: Ibuprofen (Motrin) 600 mg PO Q6H PRN PRN Reason: Pain (mild 1-3) Last Admin: 06/17/20 05:00 Dose: 600 mg Documented by: Lisinopril (Prinivil) 5 mg PO DAILY [facility] Last Admin: 06/21/20 07:40 Dose: 5 mg Documented by: Methylprednisolone Sodium Succinate (Solu-Medrol) 62.5 mg IVPUSH BID [facility] Last Admin: 06/21/20 07:30 Dose: 62.5 mg Documented by: Metoprolol Succinate (Toprol Xl) 25 mg PO DAILY [facility] Last Admin: 06/21/20 07:40 Dose: 25 mg Documented by: Multivitamins/Minerals/Vitamin C (Tab-A-Aure) 1 tab PO DAILY [facility] Last Admin: 06/21/20 07:29 Dose: 1 tab Documented by: Nitroglycerin (Nitrostat) 0.4 mg SL ASDIRECTED PRN PRN Reason: CHEST PAIN Ondansetron HCl (Zofran Odt) 4 mg PO Q6H PRN PRN Reason: nausea, able to take PO Promethazine HCl/Codeine (Phenergan With Codeine) 0 ml PO Q6H PRN PRN Reason: Cough Last Admin: 06/17/20 19:35 Dose: 5 ml Documented by: Simvastatin (Zocor) 40 mg PO BEDTIME [facility] Last Admin: 06/20/20 20:01 Dose: 40 mg Documented by: Temazepam (Restoril) 15 mg PO BEDTIME PRN PRN Reason: Sleep Last Admin: 06/18/20 20:38 Dose: 15 mg Documented by: Zinc Sulfate (Zincate) 220 mg PO DAILY [facility] Last Admin: 06/21/20 07:28 Dose: 220 mg Documented by: Discontinued Medications Cholecalciferol (Vitamin D3) 50 mcg PO ONETIME ONE Stop: 06/14/20 20:01 Last Admin: 06/14/20 20:15 Dose: 50 mcg Documented by: Clopidogrel Bisulfate (Plavix) 75 mg PO DAILY [facility] Last Admin: 06/16/20 08:41 Dose: 75 mg Documented by: Dexamethasone (Dexamethasone) 6 mg PO DAILY [facility] Last Admin: 06/19/20 08:25 Dose: 6 mg Documented by: Enoxaparin Sodium (Lovenox) 40 mg SUBCUT Q24H [facility] Last Admin: 06/14/20 20:15 Dose: 40 mg Documented by: Sodium Chloride (Normal Saline) 1,000 mls @ 125 mls/hr IV ASDIRECTED [facility] Last Admin: 06/15/20 08:28 Dose: 125 mls/hr Documented by: Lisinopril (Prinivil) 5 mg PO DAILY [facility] Last Admin: 06/16/20 08:41 Dose: 5 mg Documented by: Metoprolol Succinate (Toprol Xl) 25 mg PO DAILY [facility] Last Admin: 06/16/20 08:41 Dose: 25 mg Documented by: Nitroglycerin (Nitrostat) 0.4 mg SL ASDIRECTED PRN PRN Reason: Chest Pain Rosuvastatin Calcium [Rosuvastatin Calcium] 20 Mg Ptom 0 mg PO BEDTIME [facility] Last Admin: 06/15/20 21:00 Dose: 20 mg Documented by: Ondansetron HCl (Zofran Odt) 4 mg PO ONETIME ONE Stop: 06/14/20 15:06 Last Admin: 06/14/20 15:10 Dose: 4 mg Documented by: - Exam General: Reports: Alert, Oriented Neck: Reports: Supple Lungs: Reports: Decreased Breath Sounds (right base), Crackles (RLL) Cardiovascular: Reports: Regular Rate, Regular Rhythm GI/Abdominal Exam: Normal Bowel Sounds, Soft, Non-Tender, No Distention, No Mass Extremities: Normal Inspection, No Pedal Edema Skin: Reports: Warm, Dry, Intact Neurological: Reports: No New Focal Deficit Psy/Mental Status: Reports: Alert, Normal Mood
[2020-06-21] MEDS ORDERED: Azithromycin 500 MG in Sodium Chloride 0.9% 250 ML IV SCH (12:45)
[2020-06-21] MEDS ORDERED: cefTRIAXone 1 GM Vial IVPUSH SCH (12:45)
[2020-06-21 13:29] VITALS: BP 124/76; PULSE 72
== END 2020-06-21 15:20 | disposition home or self-care (01) | DRG 177 ==
LOC: CC.ED 14:24 → CC.MS 15:58 → UNDOADMOB 15:59 → OBSVTOIN 06-16 13:34
PROVIDERS: ADMIT Nurse Practitioner Family; ATTEND Family Medicine
DX: U07.1 COVID-19 (principal); J12.89 Other viral pneumonia; E87.1 Hypo-osmolality and hyponatremia; E86.0 Dehydration; E78.00 Pure hypercholesterolemia, unspecified; I10 Essential (primary) hypertension; Z86.718 Personal history of other venous thrombosis and embolism; M19.90 Unspecified osteoarthritis, unspecified site; Z87.891 Personal history of nicotine dependence; Z79.02 Long term (current) use of antithrombotics/antiplatelets; Z79.82 Long term (current) use of aspirin; Z79.899 Other long term (current) drug therapy; Z95.5 Presence of coronary angioplasty implant and graft
CPT/HCPCS: 36415 ×3; 71046 ×2; 80048; 80053 ×2; 82550 ×2; 83605; 83615 ×2; 84484 ×3; 85025 ×3; 85379; 86140 ×3; 93005; 99285; A9270 ×25; J1650 ×4; J7030 ×3; J8540 ×2; 93010; 96360; 96361; 96372; 99220; 99225; G0378; J0456; J0696; J2930; J7050; U0002

== ENCOUNTER 2023-06-17 13:57 | Emergency (ER) | payer MEDICARE, OTHER ==
[2023-06-17 14:13] LABS: BASOPHILS ABSOLUTE AUTO 0.03 10^3/uL (0.00-0.50); BASOPHILS PERCENT AUTO 0.3 % (0-1); EOSINOPHILS ABSOLUTE AUTO 0.28 10^3/uL (0.00-1.50); EOSINOPHILS PERCENT AUTO 2.9 % (0-6); HEMATOCRIT 41.8 % (42.0-52.0); HEMOGLOBIN 14.7 g/dL (14.0-18.0); IMMATURE GRAN ABSOLUTE AUTO 0.11 10^3/uL (0.00-0.49); IMMATURE GRAN PERCENT AUTO 1.1 % (0.0-4.9); LYMPHOCYTES ABSOLUTE AUTO 1.98 10^3/uL (0.60-5.00); LYMPHOCYTES PERCENT AUTO 20.3 % (24-44); MEAN CORPUSCULAR HEMOGLOBIN 32.8 pg (27.0-32.0); MEAN CORPUSCULAR HGB CONC 35.2 g/dL (32.0-36.0); MEAN CORPUSCULAR VOLUME 93.3 fL (83.0-97.0); MONOCYTES ABSOLUTE AUTO 0.59 10^3/uL (0.00-1.50); NEUTROPHILS ABSOLUTE AUTO 6.78 x10^3/uL (1.80-8.00); NEUTROPHILS PERCENT AUTO 69.4 % (41-71); PLATELET COUNT,PLT 242 10^3/uL (150-400); RED BLOOD CELL COUNT 4.48 x10^6/uL (4.50-6.00); WHITE BLOOD CELL COUNT,WBC 9.8 10^3/uL (4.0-11.0)
[2023-06-17 14:26] LABS: ALANINE AMINOTRANSFERASE,ALT 36 U/L (12-78); ALBUMIN 3.1 g/dL (3.4-5.0); ALKALINE PHOSPHATASE 101 U/L (46-116); ASPARTATE AMNIOTRANSFERASE,AST 18 U/L (15-37); BILIRUBIN TOTAL 0.4 mg/dL (0.0-1.0); BLOOD UREA NITROGEN,BUN 27 mg/dL (7-18); CALCIUM 8.9 mg/dL (8.4-10.1); CARBON DIOXIDE,CO2 24 mmol/L (21-32); CHLORIDE,CL 101 mEq/L (98-106); CREATININE 1.2 mg/dL (0.7-1.3); ESTIMATED GFR 63 mL/min (>=60); GLUCOSE RANDOM 232 mg/dL (75-99); MAGNESIUM 1.9 mg/dL (1.8-2.4); POTASSIUM,K 4.1 mEq/L (3.5-5.0); PROTEIN TOTAL,TP 6.6 g/dL (6.4-8.2); SODIUM,NA 135 mEq/L (136-145)
[2023-06-17 14:51] VITALS: PULSE 84
[2023-06-17 15:15] VITALS: BP 142/78
== END 2023-06-17 14:45 | disposition home or self-care (01) ==
LOC: CC.ED 13:57
DX: K92.2 Gastrointestinal hemorrhage, unspecified (principal); E78.00 Pure hypercholesterolemia, unspecified; I10 Essential (primary) hypertension; Z79.82 Long term (current) use of aspirin; Z79.899 Other long term (current) drug therapy
CPT/HCPCS: 36415; 80053; 83735; 85025; 99283; 99284

== ENCOUNTER 2023-06-17 20:02 | Emergency (ER) | payer MEDICARE, OTHER ==
[2023-06-17 20:32] LABS: BASOPHILS ABSOLUTE AUTO 0.05 10^3/uL (0.00-0.50); BASOPHILS PERCENT AUTO 0.4 % (0-1); EOSINOPHILS ABSOLUTE AUTO 0.33 10^3/uL (0.00-1.50); EOSINOPHILS PERCENT AUTO 2.4 % (0-6); HEMATOCRIT 35.3 % (42.0-52.0); HEMOGLOBIN 12.3 g/dL (14.0-18.0); IMMATURE GRAN ABSOLUTE AUTO 0.25 10^3/uL (0.00-0.49); IMMATURE GRAN PERCENT AUTO 1.8 % (0.0-4.9); LYMPHOCYTES ABSOLUTE AUTO 3.54 10^3/uL (0.60-5.00); LYMPHOCYTES PERCENT AUTO 26.1 % (24-44); MEAN CORPUSCULAR HEMOGLOBIN 32.2 pg (27.0-32.0); MEAN CORPUSCULAR HGB CONC 34.8 g/dL (32.0-36.0); MEAN CORPUSCULAR VOLUME 92.4 fL (83.0-97.0); MONOCYTES ABSOLUTE AUTO 0.94 10^3/uL (0.00-1.50); MONOCYTES PERCENT AUTO 6.9 % (0-10); NEUTROPHILS ABSOLUTE AUTO 8.44 x10^3/uL (1.80-8.00); NEUTROPHILS PERCENT AUTO 62.4 % (41-71); PLATELET COUNT,PLT 241 10^3/uL (150-400); RED BLOOD CELL COUNT 3.82 x10^6/uL (4.50-6.00); WHITE BLOOD CELL COUNT,WBC 13.6 10^3/uL (4.0-11.0)
[2023-06-17] MEDS ORDERED: Iopamidol 755 Mg/ML 100 ML Bottle IVPUSH ONE (20:39)
[2023-06-17 20:47] LABS: ALBUMIN 2.7 g/dL (3.4-5.0); BILIRUBIN TOTAL 0.4 mg/dL (0.0-1.0); CREATININE 1.3 mg/dL (0.7-1.3); EST CRCL DRUG DOSING (CG) 51.47 mL/min; MAGNESIUM 1.8 mg/dL (1.8-2.4); POTASSIUM,K 4.1 mEq/L (3.5-5.0); PROTEIN TOTAL,TP 5.8 g/dL (6.4-8.2)
[2023-06-17 20:49] LABS: INR 1.03 (0.92-1.18); PROTHROMBIN TIME 10.6 SEC (9.3-11.3); PTT,PARTIAL THROMBOPLSTIN TIME 22.5 SEC (20.0-30.0)
[2023-06-17] MEDS: Ondansetron 4 MG/2 ML SDV IVPUSH STA (20:49)
[2023-06-17] MEDS: Sodium Chloride 0.9% 1,000 ML IV SCH (21:02)
[2023-06-17] MEDS: Pantoprazole 40 MG Vial IVPUSH ONE ×2 (21:03→21:23)
[2023-06-17] MEDS: Pantoprazole 40 MG in Sodium Chloride 0.9% 100 ML IV SCH (22:33)
[2023-06-17] MEDS: Sodium Chloride 0.9% 250 ML IV SCH (22:53)
[2023-06-18 02:24] VITALS: BP 114/74; PULSE 71
== END 2023-06-18 00:25 ==
LOC: CC.ED 20:02
DX: K92.2 Gastrointestinal hemorrhage, unspecified (principal); R79.89 Other specified abnormal findings of blood chemistry; E78.00 Pure hypercholesterolemia, unspecified; I10 Essential (primary) hypertension; M19.90 Unspecified osteoarthritis, unspecified site; Z95.5 Presence of coronary angioplasty implant and graft; Z79.82 Long term (current) use of aspirin; Z79.899 Other long term (current) drug therapy
CPT/HCPCS: 36415; 36430; 71046; 74178; 80053; 83690; 83735; 84484; 85025; 85610; 85730; 86850; 86900; 86901; 86920; 86922; 93005; 93010; 96365; 96366; 96375; 99284; 99291-25; C9113; J2405; J3490; J7030; J7050; P9016

== ENCOUNTER 2024-10-18 06:51 | Emergency (ER) | payer MEDICARE, OTHER ==
[2024-10-18 07:27] LABS: BASOPHILS ABSOLUTE AUTO 0.05 10^3/uL (0.00-0.50); BASOPHILS PERCENT AUTO 0.5 % (0-1); EOSINOPHILS ABSOLUTE AUTO 0.17 10^3/uL (0.00-1.50); EOSINOPHILS PERCENT AUTO 1.9 % (0-6); HEMOGLOBIN 9.1 g/dL (14.0-18.0); IMMATURE GRAN ABSOLUTE AUTO 0.08 10^3/uL (0.00-0.49); IMMATURE GRAN PERCENT AUTO 0.9 % (0.0-4.9); LYMPHOCYTES PERCENT AUTO 17.4 % (24-44); MEAN CORPUSCULAR HEMOGLOBIN 33.5 pg (27.0-32.0); MEAN CORPUSCULAR HGB CONC 33.7 g/dL (32.0-36.0); MEAN CORPUSCULAR VOLUME 99.3 fL (83.0-97.0); MONOCYTES PERCENT AUTO 3.3 % (0-10); NEUTROPHILS ABSOLUTE AUTO 6.98 x10^3/uL (1.80-8.00); PLATELET COUNT,PLT 222 10^3/uL (150-400); RED BLOOD CELL COUNT 2.72 x10^6/uL (4.50-6.00); WHITE BLOOD CELL COUNT,WBC 9.2 10^3/uL (4.0-11.0)
[2024-10-18 07:41] LABS: ALANINE AMINOTRANSFERASE,ALT 23 U/L (12-78); ALBUMIN 2.6 g/dL (3.4-5.0); ALKALINE PHOSPHATASE 79 U/L (46-116); ASPARTATE AMNIOTRANSFERASE,AST 17 U/L (15-37); BILIRUBIN TOTAL 0.7 mg/dL (0.0-1.0); BLOOD UREA NITROGEN,BUN 42 mg/dL (7-18); CARBON DIOXIDE,CO2 22 mmol/L (21-32); CHLORIDE,CL 104 mEq/L (98-106); EST CRCL DRUG DOSING (CG) 61.75 mL/min; GLUCOSE RANDOM 199 mg/dL (75-99); POTASSIUM,K 3.9 mEq/L (3.5-5.0); PROTEIN TOTAL,TP 5.7 g/dL (6.4-8.2); SODIUM,NA 140 mEq/L (136-145)
[2024-10-18 07:43] LABS: MAGNESIUM 1.8 mg/dL (1.8-2.4)
[2024-10-18 07:50] LABS: C-REACTIVE PROTEIN < 0.50 mg/dL (<=0.50); ESTIMATED GFR 78 mL/min (>=60)
[2024-10-18 07:57] LABS: CORONAVIRUS COVID-19 NAA NEGATIVE (NEGATIVE); INFLUENZA A NAA NEGATIVE (NEGATIVE); INFLUENZA B NAA NEGATIVE (NEGATIVE)
[2024-10-18] MEDS ORDERED: Sodium Chloride 0.9% 10 ML Syringe FLUSH PRN (08:13)
[2024-10-18] MEDS: Iopamidol 755 Mg/ML 100 ML Bottle IVPUSH ONE ×2 (08:50→14:48)
[2024-10-18] MEDS: Pantoprazole 40 MG Vial IVPUSH ONE (09:21)
[2024-10-18] MEDS: Pantoprazole 40 MG Vial ONE (09:21)
[2024-10-18] MEDS ORDERED: Sodium Chloride 0.9% 250 ML IV SCH (09:30)
[2024-10-18] MEDS: Pantoprazole 40 MG in Sodium Chloride 0.9% 100 ML IV SCH ×2 (09:33→14:40)
[2024-10-18 17:30] VITALS: BP 113/76; PULSE 106
== END 2024-10-18 15:40 ==
LOC: CC.ED 06:51
DX: K92.1 Melena (principal); I10 Essential (primary) hypertension; I25.2 Old myocardial infarction; E78.00 Pure hypercholesterolemia, unspecified; M19.90 Unspecified osteoarthritis, unspecified site; Z79.82 Long term (current) use of aspirin; Z79.899 Other long term (current) drug therapy; Z79.02 Long term (current) use of antithrombotics/antiplatelets; Z79.1 Long term (current) use of non-steroidal anti-inflammatories (NSAID)
CPT/HCPCS: 0240U; 36415; 71046; 71275; 74174; 74177; 80053; 82272; 83735; 84484; 85018; 85025; 85379; 86140; 96365; 96366; 99285; J2470; Q9967; 93005; 93010; 99284